=== PATIENT | female | born 1945 | race Caucasian/White ===

== ENCOUNTER → 2018-05-27 10:59 | Outpatient (CLI) | payer MEDICARE, OTHER, SELFPAY ==
[2016-08-03 10:46] VITALS: BMI 25.9
--- OUTSIDE RECORDS SUMMARY | 2018-07-29 22:09 | XMS RPT_ITS ---
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 CARDIOVASCULAR: Negative for chest pain, leg swelling, hypertension, CHF or palpitations GI: No nausea, vomiting, or diarrhea, No heartburn or reflux symptoms and no blood. : No history of dysuria or blood MUSCULOSKELETAL: Negative for joint pain or swelling, back pain or muscle pain SKIN: Negative for lesions, rash, and itching PSYCH: Negative for sleep disturbance, mood disorder and recent psychosocial stressors HEMATOLOGY/LYMPHOLOGY: Negative for prolonged bleeding, bruising easily or swollen nodes ENDOCRINE: Negative for cold or heat intolerance. occasional low blood sugars but not symptomatic lows. NEURO: No history of headaches, syncope, paralysis, seizures or tremors EXAM: BP 122/74 (BP Site: Right Arm, BP Position: Sitting, BP Cuff Size: Regular Adult) Pulse 72 Resp 16 Ht 156.2 cm (5' 1.5ANDquot;) Wt 63 kg (139 lb) BMI 25.84 kg/m2 General Appearance: Well appearing, alert, in no acute distress, well-hydrated, well nourished.. Skin: Skin color, texture, turgor normal, no suspicious rashes or lesions, some areas of eczema. Head: Normocephalic, no masses, lesions, tenderness or abnormalities. Eyes: Anicteric sclera. Pupils are equally round and reactive to light. Extraocular movements are intact. . Ears: External ears normal, canals clear. Nose/Sinuses: Nares normal, septum midline, mucosa normal, no drainage or sinus tenderness. Oropharynx: Lips, mucosa, and tongue normal, teeth and gums normal, oropharynx normal. Neck: Supple, no adenopathy; thyroid symmetric, normal size, no bruits. Lungs: Lungs clear to auscultation. No wheezing, rhonchi, rales. Heart: RRR without murmur, gallop, or rubs. No ectopy. Abdomen: Normal abdominal exam, Abdomen soft, non-tender. Bowel sounds normal. No masses, organomegaly. Extremities: No deformities, edema, skin discoloration. Musculoskeletal: Spine range of motion normal. Muscular strength intact, No joint swelling, deformity, or tenderness. Peripheral Pulses: Normal. Neurologic: Gait normal. Reflexes normal and symmetric. Sensation to light touch and crainal nerves 2-12 intact. Feet: Shoes and socks removed, No deformities, ulcers, calluses, normal distal pulses, sensitive to 10 gm monofilament and vibratory perception normal . Health Maintenance List TETANUS due on 11/23/1956 MAMMOGRAM due on 06/12/2017 HBA1C due on 02/11/2018 URINE ALBUMIN CREATININE RATIO due on 04/13/2018 DIABETIC FOOT EXAM due on 04/23/2018 DILATED RETINAL EXAM due on 05/16/2018 LDL due on 08/12/2018 COLORECTAL CANCER SCREENING,SEE MODIFIER due on 07/19/2021 BONE DENSITY Completed ADULT PREVNAR-13 Completed INFLUENZA Completed HEPATITIS C SCREENING Completed PNEUMOVAX AGE 65 AND OVER WITH 5YR LOOKBACK Completed Data reviewed Component Latest Ref Rng ANDamp; Units 04/13/2017 08/12/2017 Protein, Total 6.3 - 8.0 g/dL 7.0 7.1 Albumin 3.9 - 4.9 g/dL 4.3 4.4 Calcium 8.5 - 10.2 mg/dL 9.2 Bilirubin, Total 0.2 - 1.3 mg/dL 0.7 0.6 Alkaline Phosphatase 32 - 117 U/L 47 48 AST 13 - 35 U/L 27 27 Glucose 74 - 99 mg/dL 107 (H) BUN 7 - 21 mg/dL 13 Creatinine 0.58 - 0.96 mg/dL 0.83 Sodium 136 - 144 mmol/L 140 Potassium 3.7 - 5.1 mmol/L 4.1 Chloride 97 - 105 mmol/L 103 CO2 22 - 30 mmol/L 26 Anion Gap 9 - 18 mmol/L 11 ALT 7 - 38 U/L 42 (H) 37 eGFR- ANDgt;60 eGFR-All Other Races . ANDgt;60 Color Yellow Yellow Clarity Clear Clear Glucose, Urine Negative mg/dL Negative Bilirubin, Urine Negative Negative Ketones, Urine Negative Negative Specific [place], Ur 1.005 - 1.030 1.019 Hemoglobin/Blood,Ur Negative Negative pH, Urine 4.5 - 8.0 5.0 Protein, Urine Negative mg/dL Negative Urobilinogen Normal Normal Nitrites Negative Negative Leukest Negative 2+ (A) Comments SEE COMMENT Urine [place] Comment SEE COMMENT WBC, Urine 0 - 5 /HPF 0-5 RBC, Urine 0 - 3 /HPF 0-3 Epithelial Cells /HPF SEE COMMENT Triglyceride ANDlt;150 mg/dL 242 (H) 227 (H) Cholesterol, Total ANDlt;200 mg/dL 167 175 HDL Cholesterol ANDgt;39 mg/dL 37 (L) 39 (L) VLDL Cholesterol ANDlt;30 mg/dL 48 (H) 45 (H) LDL Cholesterol ANDlt;100 mg/dL 82 91 Fasting Time hrs 12 12 TC:HDL Ratio ANDlt;5.10 4.51 4.49 LDL:HDL Ratio ANDlt;2.54 2.22 2.33 Non HDL Cholesterol ANDlt;130 mg/dL 130 136 (H) Bilirubin, Conjug ANDlt;0.2 mg/dL ANDlt;0.2 Creatinine, Ur Random (UCRR) 20 - 300 mg/dL 115.9 Albumin, Urine Random 0.0 - 23.0 mg/L ANDlt;12.0 Albumin/Creat Ratio 0 - 30 mg/g Not calculated Hemoglobin A1C 4.3 - 5.6 % 6.2 (H) 6.3 (H) Estimated Average Glucose mg/dL 131 134 Magnesium 1.7 - 2.3 mg/dL 2.0 A/P ASSESSMENT/PLAN: 1. Medicare annual wellness visit, subsequent - ICD9: V70.0, ICD10: Z00.00 (primary diagnosis) - Encouraged monthly Breast Self Exam - Follow up for annual exam in one year. 2. Controlled type 2 diabetes mellitus without complication, without long-term current use of insulin (HCC) - ICD9: 250.00, ICD10: E11.9 Controlled. - Continue current medications - BP goal of ANDlt;130/80 - LDL goal of ANDlt;100 3. Mixed hyperlipidemia - ICD9: 272.2, ICD10: E78.2 - good control - Continue current medication. - Encouraged following a low fat, low cholesterol diet. - Discussed the benefits of regular aerobic exercise and weight loss. - Encouraged following a low carbohydrate, healthy oil intake diet. 4. GERD without esophagitis - ICD9: 530.81, ICD10: K21.9 - Continue treatment with Nexium 40 mg QD 5. Primary insomnia - ICD9: 307.42, ICD10: F51.01 - Stable without need for nightly medication. 6. Encounter for screening mammogram for breast cancer - ICD9: V76.12, ICD10: Z12.31 Check } - GIA SCREENING 7. Eczema, unspecified type - ICD9: 692.9, ICD10: L30.9 - Topical steriod tx with Rx for steriod cream/ointment- see orders - discussed skin care of rash - follow up if symptoms persist or worsen. Signed Prescriptions Disp Refills metFORMIN ER (GLUCOPHAGE XR) 500 mg 24 hr tablet 90 tablet 1 Sig: Take 1 tablet by mouth daily with breakfast. DONAL: No triamcinolone acetonide (KENALOG) 0.1 % cream 1 Tube 1 Sig: Apply 1 application to affected area three times daily. On 4 days and then off for 3 and repeat when needed. Apply sparingly. DONAL: No F/u 4 months routine, check FLP, LFT's and A1c prior. Time with patient face to face was 25 min for [facility] and 10 min for medicare wellness. MD Bharti Hull MD 08/27/2017 11:28 AM Signed Please get fasting labs done on or after 12/13/2017 prior to next visit. Referring Provider: BHARTI PETERSON [[id number]] Allergies As of Date: 08/27/2017 Noted Allergy Reaction ADHESIVE TAPE (ROSINS) 07/22/2012 2 - Rash CECLOR (CEFACLOR) 04/19/2005 GREEN DYE 04/20/2005 5 - Intolerance Comments: MAKES HER FACE BREAK OUT LIPITOR (ATORVASTATIN CALCIUM) 04/04/2017 17 - Myalgia VICODIN (HYDROCODONE-ACETAMINOPHE*08/13/2012 11 - Vomiting Date Reviewed: 08/27/2017 Reviewed by: Bharti Peterson - Fully Assessed Reason for Visit: Physical [83] Cmt: 4 months Primary Visit Diagnosis:Medicare annual wellness visit, subsequent [Z00.00] Comment:last done: 08/27/2017 Other Visit Diagnoses:Controlled type 2 diabetes mellitus without complication, without long-term current use of insulin (HCC) [E11.9] Mixed hyperlipidemia [E78.2] GERD without esophagitis [K21.9] Primary insomnia [F51.01] Encounter for screening mammogram for breast cancer [Z12.31] Eczema, unspecified type [L30.9] Order(s):metFORMIN ER (GLUCOPHAGE XR) 500 mg 24 hr tabletTake 1 tablet by mouth daily with breakfast.Disp: 90 tabletRfl: 1 GIA SCREENING [[id number]] Order #: [id number] FUTURE triamcinolone acetonide (KENALOG) 0.1 % creamApply 1 application to affected area three times daily. On 4 days and then off for 3 and repeat when needed. Apply sparingly.Disp: 1 TubeRfl: 1 HGB A1C [ADCXS0J] Order #: [id number] FUTURE LIPID PANEL BASIC [SQLIPB] Order #: [id number] FUTURE HEPATIC FUNCTION PNL [SQHFP] Order #: [id number] FUTURE Prescriptions as of 08/27/2017 Sig: METFORMIN ER 500 MG TABLET,EX* Take 1 tablet by mouth daily * TRIAMCINOLONE ACETONIDE 0.1 %* Apply 1 application to affect* SIMVASTATIN 40 MG TABLET Take 1 tablet by mouth daily * ESOMEPRAZOLE MAGNESIUM 40 MG * Take 1 capsule by mouth DAILY* CALCIUM 600 MG-D3 800 UNIT-MA* Take 1 tablet by mouth once d* FLAXSEED OIL 1,000 MG CAPSULE Take 1,000 mg by mouth 3 time* Problem List As Of Date 08/27/2017 Noted Resolved Goiter [E04.9] INVALID FOR* Priority: B Controlled type 2 diabetes mellitus without com*INVALID FOR* Priority: A Mixed hyperlipidemia [E78.2] INVALID FOR* Priority: A Unspecified sleep apnea [G47.30] INVALID FOR* Priority: B More... Benign neoplasm of colon [D12.6] INVALID FOR* Priority: C Hiatal hernia [K44.9] INVALID FOR* Priority: B GERD without esophagitis [K21.9] INVALID FOR* Priority: A Chronic pansinusitis [J32.4] INVALID FOR* Priority: B More... Eczema [L30.9] INVALID FOR*04/16/2016 Priority: D Fibrocystic breast disease [N60.19] INVALID FOR* Priority: C Chronic low back pain [M54.5, G89.29] INVALID FOR* Priority: M More... Primary insomnia [F51.01] INVALID FOR* Priority: B Diabetic eye exam (HCC) [Z01.00, E11.9] INVALID FOR* Priority: A More... Colon cancer screening [Z12.11] INVALID FOR* More... Thoracic spine pain [M54.6] INVALID FOR* Senile osteopenia [M85.80] INVALID FOR* Priority: M Current use of proton pump inhibitor [Z79.899] INVALID FOR* More... Right shoulder pain [M25.511] INVALID FOR* Irritated nevus [D22.9] INVALID FOR* Priority: D More... Encounter for gynecological examination [Z01.41*INVALID FOR* Priority: E More... Medicare annual wellness visit, subsequent [Z00*INVALID FOR* Priority: E More... Well adult exam [Z00.00] INVALID FOR* Priority: E More... Encounter for screening mammogram for breast ca*INVALID FOR* Eczema [L30.9] INVALID FOR* Priority: D Other instructions from your clinician: Please get fasting labs done on or after 12/13/2017 prior to next visit. Prescriptions ordered this encounter Disp Refills Start End METFORMIN ER 500 MG TABLET,EXTENDED * 90 t* 1 08/27/2017 Route: ORAL Sig: Take 1 tablet by mouth daily with breakfast. TRIAMCINOLONE ACETONIDE 0.1 % TOPICA* 1 Tu* 1 08/27/2017 Route: TOPICAL Sig: Apply 1 application to affected area three times daily. On 4 days and then off for 3 and repeat when needed. Apply sparingly. Medications Discontinued During This Encounter metFORMIN ER (GLUCOPHAGE XR) 500 mg * 90 t* 1 02/22/2017 08/27/2017 Route: ORAL Sig: Take 1 tablet by mouth daily with breakfast. Disc: Reason for discontinue is not on file. triamcinolone acetonide (KENALOG) 0.* 0 04/16/2016 08/27/2017 Class: Med Update Route: TOPICAL Sig: Apply 1 application to affected area three times daily. Apply sparingly to area for rash/itching. Disc: Reason for discontinue is not on file. Cosign accepted by BHARTI PETERSON[[id number]] on 04/16/2016 4:42 PM Disposition: Return in about 4 months (around 12/27/2017) for routine. Follow-up and Disposition History Recorded Encounter Status:Closed by BHARTI PETERSON on 08/27/17 HEPATIC FUNCTN PANEL Collected: 08/12/2017 Status: F Source: [place] 10:[address] [facility] REPOSITORY TYPE CODE TESTS RESULT OUT OF REFERENCE UNITS RANGE LAB ALB 3.9-4.9 g/dL Albumin 4.4 LAB TBIL 0.2-1.3 mg/dL Bilirubin, Total 0.6 LAB CBIL <0.2 mg/dL Bilirubin,Conjuga <0.2 alan LAB ALKP 32-117 U/L Alkaline Phosphatase 48 LAB AST 13-35 U/L AST 27 LAB ALT 7-38 U/L ALT 37 LAB TP 6.3-8.0 g/dL Protein, Total 7.1 Performed By: #### HFP, LIPB, MG1, HBA1C #### [facility] [address] [place] [id number] LIPID PANEL, BASIC Collected: 08/12/2017 Status: F Source: [place] 10:[address] [facility] [place] REPOSITORY TYPE CODE TESTS RESULT OUT OF REFERENCE UNITS RANGE LAB CHOL <200 mg/dL Cholesterol 175 Result Comment: <200 mg/dL, Desirable 200-239 mg/dL, Borderline high >239 mg/dL, High LAB TRIGLY <150 mg/dL Triglyceride High 227 Result Comment: <150 mg/dL, Normal 150-199 mg/dL, Borderline high 200-499 mg/dL, High >499 mg/dL, Very high LAB HDL >39 mg/dL HDL-Cholesterol Low 39 Result Comment: 40-59 mg/dL, Acceptable >59 mg/dL, High: Negative risk factor for coronary heart disease <40 mg/dL, Low: Positive risk factor for coronary heart disease LAB LDL <100 mg/dL LDL-Cholesterol 91 Result Comment: <100 mg/dL, Optimal 100-129 mg/dL, Near optimal/above optimal 130-159 mg/dL, Borderline high 160-189 mg/dL, High >189 mg/dL, Very high Secondary prevention optimal LDL Cholesterol levels are recommended to be < 70 mg/dL LAB NONHDL <130 mg/dL Non HDL High Cholesterol 136 Result Comment: <130 mg/dL, Optimal 130-159 mg/dL, Near optimal/above optimal 160-189 mg/dL, Borderline high 190-219 mg/dL, High >219 mg/dL, Very high Secondary prevention optimal non HDL Cholesterol levels are recommended to be < 100 mg/dL LAB FT hrs Fasting Time 12 LAB VLDL <30 mg/dL High VLDL Cholesterol 45 LAB TCHDL <5.10 TC:HDL Ratio 4.49 LAB LDLHDL <2.54 LDL:HDL Ratio 2.33 Result Comment: Reference: 1. National Cholesterol Education Program ATP III Guideline At-A-Glance Quick Desk Reference: National Heart, Lung, and Blood [place]. National Institutes of Health. 2001: NIH Publication No. 01-3305. 2. An International Atherosclerosis Society position paper: global recommendations for the management of dyslipidemia: executive summary, Atherosclerosis. 2014: 232(2):410-413. Performed By: #### HFP, LIPB, MG1, HBA1C #### [facility] [address] [place], [place] [address] MAGNESIUM Collected: 08/12/2017 Status: F Source: [place] 10:24 AM [facility] REPOSITORY TYPE CODE TESTS RESULT OUT OF REFERENCE UNITS RANGE LAB MG 1.7-2.3 mg/dL Magnesium 2.0 Performed By: #### HFP, LIPB, MG1, HBA1C #### [facility] [address] [place], [place] [address] HEMOGLOBIN A1C Collected: 08/12/2017 Status: F Source: [place] 10:24 AM [facility] REPOSITORY TYPE CODE TESTS RESULT OUT OF REFERENCE UNITS RANGE LAB HGBA1C 4.3-5.6 % High Hemoglobin A1c 6.3 LAB HBA0 mg/dL Est. Average Glucose 134 Result Comment: eAG: (Estimated average glucose) is a calculated value from HgbA1c and is open claims representative of the average blood glucose level in the last 2-3 month period. Performed By: #### HFP, LIPB, MG1, HBA1C #### [facility] [address] [place], [place] [address] ALLERGIES ALLERGIES DATE TYPE / CODE NAME / CODE REACTION SEVERITY SOURCE DRUG ATORVASTATIN Myalgia [facility] 7 INGREDI/[id number]( [facility] SNOMED CT) [place] [facility] DRUG ATORVASTATIN Myalgia [place] [address] INGREDI/466811064( [facility] SNOMED CT) [place] [facility] Drug cefaclor/[id number] Other Unknown [place] 7 Allergy/869908298( 26(RXNORM) [facility] SN[facility] Drug adhesive/[id number] Other Unknown [place] 7 Allergy/235921396( 45(RXNORM) [facility] SNOMED [facility]) [facility] Miscellaneous GREEN DYE Other Unknown [place] 7 Allergy/318351645( [facility] SN[facility] DRUG/[id number](SNO HYDROCODONE-ACETA Vomiting Low [place] [address] [facility] [address]) [facility] Repository DRUG/816008746(SNO HYDROCODONE-ACETA Vomiting [place] [address]) [facility] [place] [facility] Chemical/[id number] ADHESIVE TAPE RASH Low [place] 3 (SNOMED CT) (ROSINS) [facility] [place] [facility] Chemical/312321033 ADHESIVE TAPE RASH [place] 3 (SNOMED CT) (ROSINS) [facility] [place] [facility] DRUG GREEN DYE INTOLERANCE Low [place] 5 INGREDI/896701784( [facility] Main SNOMED CT) [place] [facility] DRUG GREEN DYE INTOLERANCE [place] 5 INGREDI/737203526( Clinic Main SNOMED CT) [place] [facility] DRUG CEFACLOR UNKNOWN [place] 5 INGREDI/114228047( [facility] Main SNOMED [facility]) [place] [facility] DRUG CEFACLOR [place] 5 INGREDI/949149312( [facility] Main SNOMED CT) [place] [facility] ENCOUNTERS ENCOUNTERS ADMIT/DISCHARGE ACCOUNT ADMITTING ENCOUNTER LOCATION SOURCE NUMBER CLASS 05/27/2018 [id number] Ambulatory [facility] ing:LABSPEC Repository 04/16/2018/04/17/20 [id number] Ambulatory [address] Main [place] [facility] 03/28/2018/03/28/20 [id number] Ambulatory [address] Main [place] [facility] 03/28/2018/03/28/20 [id number] Ambulatory [address] Main [place] [facility] 03/28/2018/03/31/20 [id number] Ambulatory [address] [facility] [place] [facility] 03/07/2018/03/10/20 [id number] Ambulatory [address] Main [place] [facility] 01/17/2018/01/21/20 [id number] Ambulatory [place] 18 [facility] Main [place] [facility] 01/02/2018/01/04/20 [id number] Ambulatory [place] 18 [facility] Main [place] [facility] 12/20/2017/12/21/19 [id number] Ambulatory [place] 18 [facility] Main [place] [facility] 09/25/2017/09/26/19 [id number] Ambulatory [place] 18 [facility] Main [place] [facility] 09/25/2017/09/26/19 [id number] Ambulatory [place] 18 [facility] Main [place] [facility] 09/11/2017/09/14/19 [id number] Ambulatory [place] 18 [facility] Main [place] [facility] 09/11/2017 [id number] Ambulatory [facility] Repository 08/27/2017/08/29/19 [id number] Ambulatory [address] Repository 08/12/2017 [id number] Ambulatory [facility] Repository PAYERS PAYERS ENCOUNTER GUARANTOR PAYER SUBSCRIBER SOURCE 05/27/2018 PILLO J Primary PILLO J [place] [id number] Insurance:MEDICARE HOFFDOB: [place], [place] PART A BPolicy Number: [id number] [address]Piu: [id number] Repository [phone] () Date:2018-05-27 05/27/2018 Secondary PILLO J [place] Insurance:HUMANA HOFFDOB: [facility] [address] [id number] [facility] Number: Repository [id number] Date:[id number] [id number]: 05/27/2018 Tertiary NOT GIVENUNK [place] Insurance:SELF PAY [facility] Number: Effective Repository Date:2018-05-27
== END ==
PROVIDERS: Family Provider Family Medicine; PCP Family Medicine; Referring Provider Otolaryngology Otolaryngology/Facial Plastic Surgery; Visit Provider Otolaryngology Otolaryngology/Facial Plastic Surgery
DX: J02.9 Acute pharyngitis, unspecified (principal); J32.9 Chronic sinusitis, unspecified
CPT/HCPCS: 87070; 87077

== ENCOUNTER → 2019-06-15 14:22 | Outpatient (CLI) | payer MEDICARE, OTHER, SELFPAY ==
[2016-08-03 10:46] VITALS: BMI 25.9
[2019-06-19 05:06] LABS: Alternaria tenuis <0.10 kU/L (Class 0); Ash, White <0.10 kU/L (Class 0); Aspergillus fumigatus <0.10 kU/L (Class 0); Bermuda Grass <0.10 kU/L (Class 0); Birch <0.10 kU/L (Class 0); Black Walnut <0.10 kU/L (Class 0); Cat Hair / Dander,Stand <0.10 kU/L (Class 0); Cedar, Mountain <0.10 kU/L (Class 0); Cladosporium herbarum <0.10 kU/L (Class 0); Cockroach, American <0.10 kU/L (Class 0); Cottonwood <0.10 kU/L (Class 0); D farinae Mite <0.10 kU/L (Class 0); D pteronyssinus <0.10 kU/L (Class 0); Dog Epithelia <0.10 kU/L (Class 0); Elm, American White <0.10 kU/L (Class 0); Immunoglobulin E 11 IU/mL (6-495); Maple/Box Elder <0.10 kU/L (Class 0); Mulberry, White <0.10 kU/L (Class 0); Oak, White <0.10 kU/L (Class 0); Pecan <0.10 kU/L (Class 0); Penicillium Notatum <0.10 kU/L (Class 0); Pigweed, Rough <0.10 kU/L (Class 0); Ragweed, Short/Common <0.10 kU/L (Class 0); Russian Thistle <0.10 kU/L (Class 0); Sheep Sorrel <0.10 kU/L (Class 0); Sycamore, American <0.10 kU/L (Class 0); Timothy Grass <0.10 kU/L (Class 0)
[2019-06-19 11:11] LABS: Mouse Urine <0.10 kU/L (Class 0)
== END ==
PROVIDERS: PCP Family Medicine; Referring Provider Otolaryngology; Visit Provider Otolaryngology
DX: T78.40XA Allergy, unspecified, initial encounter (principal)
CPT/HCPCS: 36415; 82785; 86003

== ENCOUNTER 2019-11-06 11:38 | Observation (INO) | payer MEDICARE, OTHER, SELFPAY ==
[2019-11-06] VITALS (12 sets, daily range): BP systolic 107–185; BP diastolic 72–104; PULSE 61–87; RESP 16–22; TEMP 36.8–36.9; O2SAT 96–97; BMI 26.2; BMI 26.0; BMI 26.1
--- NOTE | 2019-11-06 11:45 | EKG12_ITS ---
Test Reason : CP Blood Pressure : / mmHG Vent. Rate : 081 BPM Atrial Rate : 081 BPM P-R Int : 142 ms QRS Dur : 092 ms QT Int : 388 ms P-R-T Axes : 026 -10 016 degrees QTc Int : 450 ms Normal sinus rhythm Normal ECG Confirmed by YADIEL PIERCE ([id number]), commercial production editor ARMIN MELLO ([id number]) on 11/09/2019 2:15:47 PM Referred By: KOKO Confirmed By:YADIEL PIERCE
--- NOTE | 2019-11-06 11:50 | ED.DCSUM_ITS ---
History of Present Illness Chief Complaint: Chest Pain Informant: Patient Onset: Yesterday Narrative: 73-year-old female with past medical history of diabetes and hyperlipidemia presents with concern for chest pain. States it began approximately 12 hours ago. States that she felt a pain that was in the center of her chest as well as her right shoulder and going down her right arm. States it is aching in nature. States that she was able to sleep but this morning it is persisted. States that she did take an aspirin last night. Patient feels that this is related to her blood pressure. Patient does not take antihypertensive medication but did check her blood pressure last night and documented as approximately 145/100. States that she has had pain before in the past with elevation of her blood pressure. Denies any shortness of breath, nausea, vomiting, or diaphoresis. Denies any history of DVT or pulmonary embolism. Denies any recent long trips, surgeries, hospitalizations. Patient is not on anticoagulation. Denies any trauma. Patient is not a former or current smoker. Denies any drugs or alcohol. Past Medical History - Allergies and Home Meds Allergies/Adverse Reactions: Allergies adhesive Allergy (Verified 11/06/19 11:39) Other cefaclor [From Ceclor] Allergy (Verified 11/06/19 11:39) Other GREEN DYE Allergy (Uncoded 11/06/19 11:39) Other Past Medical History: - - HLD and DM Surgical History: - - Partial colectomy, foot surgery, or septoplasty. Lives: Spouse/ Significant Other Smoking Status: Never smoker Alcohol: None Drugs: None - Family History Maternal Family History: Reports: No pertinent history Paternal Family History: Reports: No pertinent history Review of Systems General: Denies: Chills, Fever, Sweats Eyes: Denies: Visual changes - bilaterally, Diplopia ENT: Denies: Rhinorrhea, Sore throat Cardiovascular: Reports: Chest pain. Denies: Palpitations Respiratory: Denies: Dyspnea, Cough, Dyspnea on exertion Gastrointestinal: Denies: Abdominal pain, Nausea, Vomiting, Diarrhea, Melena, Hematochezia Genitourinary: Denies: Dysuria, Hematuria, Frequency Musculoskeletal: Reports: Arthralgias. Denies: Back pain, Extremity Pain Skin: Denies: Rash, Wounds Neurological: Denies: Headache, Weakness, Numbness Physical Exam Vital Signs/Narrative: Vital Signs Temp Pulse Resp BP Pulse Ox 11/06/19 11:40 98.2 F 87 17 166/90 H 96 Inital Vital Signs reviewed: Yes General: Well nourished, Well developed, No Acute Distress Head: Normocephalic, Atraumatic Eyes: Perrl, EOMI ENT: Moist mucous membranes, No rhinorrhea Neck: Supple, Nontender Cardiovascular: Regular rate, Regular rhythm, No murmurs Respiratory: No distress, CTA bilaterally, Chest nontender Abdomen: Soft, Nontender, Nondistended, Normal bowel sounds Back: Nontender, Normal Inspection Extremities: Nontender, No edema Skin: Normal color, No rash Neurological: Alert, Oriented x3, Cranial nerves II-XII grossly intact, Normal Strength, Normal Sensation Psychological: Normal affect, Normal Mood Diagnostic/Tx/Re-eval Clinical Impression(s) from Imaging Studies Chest X-Ray 11/06/19 12:03 IMPRESSION: No acute thoracic pathology. Electronically Signed: Thomas Pacheco, at 12:19 EDT Tel , Service support , Laboratory Data 11/06/19 11/06/19 11:30 11:30 WBC 4.8 RBC 5.04 Hgb 15.1 H Hct 46.0 MCV 91.3 MCH 30.0 MCHC 32.8 RDW Std Deviation 43.1 RDW Coeff of Claudia 13.2 Plt Count 197 MPV 10.0 Immature Gran % (Auto) 0.800 Neut % (Auto) 58.9 Lymph % (Auto) 32.8 [place] % (Auto) 5.9 Eos % (Auto) 0.8 Baso % (Auto) 0.8 Absolute Neuts (auto) 2.8 Absolute Lymphs (auto) 1.56 Nucleated RBC % 0 Sodium 140 Potassium 3.9 Chloride 107 Carbon Dioxide 28.0 Anion Gap 5 BUN 19 H Creatinine 0.85 Estim Creat Clear Calc 43.82 Est GFR (MDRD) Af Amer 84 Est GFR (MDRD) Non-Af 70 BUN/Creatinine Ratio 22.4 H Glucose 144 H Calcium 9.2 Troponin I < 0.015 - Rhythm Strip Rhythm Strip: Sinus Rhythm Rate: 81 Ectopy: None - EKG Initial EKG Interpretation: Sinus Rhythm - This rhythm at 81 bpm. CA interval of 142 ms. QTC of 450 ms. No evidence of acute ischemia. Unchanged from previous EKG in July 2016. - Medical Decision Making Appears well nontoxic. Vital signs within normal limits. EKG nonischemic. Troponin negative. Patient did receive aspirin as well as 2 doses of nitroglycerin which resolved her chest pain. Given the patient's age as well as risk factors and no previous history of hypertension or coronary artery disease she will be admitted for stress testing and further evaluation. Spoke with Dr. Dumont who is agreeable with admission. Patient also agreeable and admitted in stable condition. ED Disposition - Plan for ED Patient: Disposition: [facility] Diagnosis: Chest pain, Elevated blood pressure reading
[2019-11-06] MEDS: Aspirin 81 MG TAB.CHEW 324 MG PO (11:56)
[2019-11-06] MEDS: Nitroglycerin (INPATIENT USE) 0.4 MG TAB.SUBL SUBLINGUAL ×2 (11:57→12:10)
[2019-11-06 12:01] LABS: Absolute Lymphocyte Count 1.56 X10^3/uL (0.83-4.51); Absolute Neutrophil Count 2.8 X10^3/uL (2.0-7.7); Basophil# 0.04 X10^3/uL; Basophil% 0.8 % (0-1); Eosinophil# 0.04 X10^3/uL; Eosinophils% 0.8 % (0-5); Hemoglobin 15.1 g/dL (12.0-15.0); Lymphocyte # 1.56 X10^3/ul (4.0); Lymphocyte % 32.8 % (19-41); Mean Corp Hgb Conc 32.8 g/dL (32-36); Mean Corpuscular Volume 91.3 fL (81-99); Monocyte# 0.28 X10^3/uL; Monocyte% 5.9 % (0-10); NRBC Flagged by Analyzer 0 % (0-5); Neutrophil # 2.79 X10^3/uL (2.7-7.7); Neutrophil % 58.9 % (47-70); Platelet Count 197 K/mm3 (150-450); RBC Distribution Width CV 13.2 % (11.6-14.6); RBC Distribution Width SD 43.1 fl (35.1-43.9); Red Blood Count 5.04 M/mm3 (4.2-5.4); White Blood Count 4.8 K/mm3 (4.4-11.0)
--- NOTE | 2019-11-06 12:03 | RAD_ITS ---
STUDY: X-RAY CHEST REASON FOR EXAM: Female, 73 years old. Chest pain TECHNIQUE: Frontal view of the chest COMPARISON: 10/03/2016 FINDINGS: The lungs are clear. There are no pleural effusions. There is no pneumothorax. The heart is normal in size. The visualized osseous structures are within normal limits. RAD/Chest 1 View (Portable) IMPRESSION: No acute thoracic pathology. Electronically Signed: Thomas Pacheco, at 12:19 EDT Tel , Service support ,
[2019-11-06 12:15] LABS: Anion Gap 5 (5-15); BUN 19 mg/dL (7-18); BUN/Creat Ratio 22.4 RATIO (10-20); Calcium,Total 9.2 mg/dL (8.5-10.1); Chloride 107 mmol/L (98-107); Creatinine, Serum 0.85 mg/dL (0.55-1.02); EST Glomerular Filtration Rate 70 mL/min (>60); Est Glom Filt Rate - Afr Amer 84 mL/min (>60); Estimated Creatinine Clearance 43.82 ml/min; Glucose 144 mg/dL (74-106); Potassium 3.9 mmol/L (3.5-5.1); Sodium Level 140 mmol/L (136-145)
--- NOTE | 2019-11-06 12:57 | NURSING ---
PCU CP, ELEVATED BP JUAN RAMON
--- NOTE | 2019-11-06 13:02 | PCM.HP.STD ---
Problem List (1) Elevated blood pressure reading Status: Acute (2) Chest pain Status: Acute (3) Hiatal hernia Status: Chronic (4) GERD (gastroesophageal reflux disease) Status: Chronic (5) Hyperlipidemia Status: Chronic (6) Type 2 diabetes mellitus Status: Chronic History of Present Illness Date of Admission: 11/06/19 Chief Complaint: Chest pain. The patient is a 73 year old F with past medical history as mentioned above presented to the emergency room because of chest pain. Her symptoms started last night with retrosternal chest pain, dull aching pain, mild pain, 2 out of 10 in severity, extends to both shoulders and her back, no aggravating or relieving factors and no associated symptoms. She denied associated shortness of breath, palpitation, dizziness, lightheadedness, syncope or presyncope. Also, she complained of productive cough with clear sputum that has been going on since March,. She mentioned that she has been following up with immunology as outpatient and she has been getting injections for allergies. She denied fever or chills. Initially in the emergency department, her blood pressure was elevated, other vital signs were stable. She received sublingual nitroglycerin and her blood pressure improved. Her routine blood work was unremarkable. Her EKG revealed normal sinus rhythm, normal [place] interval, normal QRS, normal QTC, no acute segment changes. Troponin was negative. Chest x-ray showed no acute findings. She is being admitted for chest pain for evaluation. Past Medical History Past Medical History (Chronic Problems): Chronic Problems Hiatal hernia (Chronic) GERD (gastroesophageal reflux disease) (Chronic) Hyperlipidemia (Chronic) Type 2 diabetes mellitus (Chronic) Allergies adhesive Allergy (Verified 11/06/19 11:39) Other cefaclor [From Ceclor] Allergy (Verified 11/06/19 11:39) Other GREEN DYE Allergy (Uncoded 11/06/19 11:39) Other Home Medications: Ambulatory Orders Medication Instructions Recorded Esomeprazole Mag Trihydrate 20 mg PO DAILY 02/22/14 [Nexium] Simvastatin [Zocor] 40 mg PO QHS 02/22/14 Melaton/5-Hydroxy/Trypt/B6/Mag 1 each PO QHS 08/03/16 [Somnicin Capsule] Famotidine [Pepcid] 40 mg PO DAILY 11/06/19 Metformin HCl [Metformin HCl ER] 500 mg PO DAILY 11/06/19 Surgical History: - - Partial colectomy for colonic polyp, foot surgery, or septoplasty. Psychiatric History: No pertinent psych hx PATIENT OBSERVATION ASSISTANT History: No pertinent PATIENT OBSERVATION ASSISTANT history Lives: Spouse/ Significant Other Smoking Status: Never smoker Alcohol: None Drugs: None - *Family History Maternal History Items: No pertinent history Paternal History Items: No pertinent history Review of Systems Constitutional: Denies: Anorexia, Chills, Fever, Weakness Eyes: Denies: Blurred vision, Double vision, Drainage, Redness HEENT: Denies: Difficulty Hearing, Ear Pain, Eye Pain, Nasal Congestion, Sore Throat Cardiovascular: Reports: Chest Pain, Chest Pressure. Denies: Edema, Heaviness, Light Headedness, Palpitations, Syncope Respiratory: Reports: Cough, Pleuritic Pain, Sputum production. Denies: Shortness of Breath, Wheezing Gastrointestinal: Denies: Abdominal Pain, Constipation, Diarrhea, Nausea, Vomiting Genitourinary: Denies: Dysuria, Frequency, Hematuria Musculoskeletal: Denies: Arm Pain, Back Pain, Foot Pain Skin: Denies: Dryness, Rash Neurological: Denies: Balance problems, Double vision, Change in Speech, Slurred speech, Confusion, Incoordination, Numbness Psychiatric: Denies: Anxiety, Depression Endocrine: Denies: Change in Body Habitus, Polydipsia, Polyuria VTE Information - Inpt Only VTE Present on Admission: No VTE Mechan Device Prophylaxis: None VTE Pharm Prophylaxis ordered?: Yes Patient Problems: Active and Suspected Problems Elevated blood pressure reading (Acute) Chest pain (Acute) - Physical Exam Vitals/I&O's: Vital Signs Temp Pulse Resp BP Pulse Ox 98.2 F 75 21 H 107/74 96 11/06/19 11:40 11/06/19 12:39 11/06/19 12:39 11/06/19 12:39 11/06/19 12:39 Oxygen Flow Rate (L/min) 2 Oxygen Delivery Method Room Air Weight: 138 lb 14.259 oz Body Mass Index (BMI) 26.2 General: Alert, Oriented x3, Cooperative, No apparent distress HEENT: Atraumatic, PERRLA, EOMI, Normocephalic Oral: Moist Mucosa, No Gingival or Mucosal Lesions/ Ulcerations Neck: Supple, No JVD, Negative Carotid Bruits, Trachea Midline, Thyroid Normal Size and Texture Lungs: Clear to auscultation, Normal air movement, No rhonchi, No wheeze, No rales Cardiovascular: Regular rate, Regular Rhythm, Normal S1, Normal S2, No murmurs, PMI Normal Abdomen: Bowel Sounds Present, Soft, Non Tender, Non-Distended, No Hepato-splenomegaly Extremities: No clubbing, No cyanosis, No edema Skin: No rashes, No breakdown Lymphatic: No Cervical, Supraclavicular, or Inguinal Adenopathy Neurological: Cranial nerves II-XII grossly intact, Motor Exam 5/5 strength throughout Psych/Mental Status: Normal Affect, Appropriate, Alert and oriented to time, place, person, mood and affect Laboratory Results 11/06/19 11:30: WBC 4.8, RBC 5.04, Hgb 15.1 H, Hct 46.0, MCV 91.3, MCH 30.0, MCHC 32.8, RDW Std Deviation 43.1, RDW Coeff of Claudia 13.2, Plt Count 197, MPV 10.0, Immature Gran % (Auto) 0.800, Neut % (Auto) 58.9, Lymph % (Auto) 32.8, [place] % (Auto) 5.9, Eos % (Auto) 0.8, Baso % (Auto) 0.8, Absolute Neuts (auto) 2.8, Absolute Lymphs (auto) 1.56, Nucleated RBC % 0 11/06/19 11:30: Sodium 140, Potassium 3.9, Chloride 107, Carbon Dioxide 28.0, Anion Gap 5, BUN 19 H, Creatinine 0.85, Estim Creat Clear Calc 43.82, Est GFR (MDRD) Af Amer 84, Est GFR (MDRD) Non-Af 70, BUN/Creatinine Ratio 22.4 H, Glucose 144 H, Calcium 9.2, Troponin I < 0.015 Clinical Impression(s) from Imaging Studies Chest X-Ray 11/06/19 12:03 IMPRESSION: No acute thoracic pathology. Electronically Signed: Thomas Pacheco, at 12:19 EDT Tel , Service support , Assessment/Plan All Active Problems Elevated blood pressure reading (Acute) Chest pain (Acute) This is a 73 years old female patient presented to the emergency room because of chest pain and she is being admitted for evaluation. #1 chest pain: Seemed to be atypical. Risk factors are age, history of diabetes and hyperlipidemia. No family history of premature CAD. EKG was unremarkable. First troponin is negative. Chest x-ray showed no acute findings. Chest pain improved after blood pressure went down. Plan: Admit to PCU for observation, cardiac monitoring, serial cardiac enzymes, repeat EKG tomorrow morning, gentle IV fluids for hydration, Tylenol PRN, Zofran PRN, stress echocardiogram tomorrow morning if cardiac enzymes are negative. #2 elevated blood pressure: Without history of hypertension. Upon arrival to ED, systolic blood pressure was in the 180s, received with nitroglycerin sublingual and blood pressure improved. At this time, blood pressure stable. Plan: Start lisinopril, IV hydralazine PRN. #3 type 2 diabetes mellitus: Blood sugar stable, plan for ADA diet, Accu-Cheks, insulin scale, hold metformin for now. #4 GERD/hiatal hernia: Continue Nexium and Pepcid. #5 hyperlipidemia: Continue statins. #6 seasonal allergies/chronic cough with sputum production: Patient has been following up with immunology, getting injections for allergies as outpatient. Chest x-ray showed no acute findings. She has been febrile, no leukocytosis. #7 DVT prophylaxis: Subcu Lovenox. This note was generated with Headplay dictation software. It may contain incorrect words, spelling, and punctuation that were not noted in checking the note before signing. OBSV E&M: [id number] Initial observation care L3
--- NOTE | 2019-11-06 14:18 | EKG12_ITS ---
Test Reason : MORNING EKG Blood Pressure : / mmHG Vent. Rate : 061 BPM Atrial Rate : 061 BPM P-R Int : 174 ms QRS Dur : 084 ms QT Int : 450 ms P-R-T Axes : 026 -13 003 degrees QTc Int : 453 ms Normal sinus rhythm Normal ECG Confirmed by HELADIO MARCIAL, ANGELI ([id number]), associate entertainment editor PEREZ DENISE ([id number]) on 11/11/2019 10:39:51 AM Referred By: JUAN RAMON Confirmed By:ANGELI LEIJA MD
[2019-11-06] MEDS: 0.9% Saline Lock 10 ML Syringe IV (14:53)
[2019-11-06] MEDS: 0.9% Normal Saline 1,000 ML 75 ML IV (14:54)
[2019-11-06 16:10] LABS: Bedside Glucose 104 mg/dL (70-110)
[2019-11-06] MEDS: Atorvastatin Calcium 20 MG Tablet PO (21:33)
[2019-11-07] VITALS (7 sets, daily range): BP systolic 101–134; BP diastolic 68–72; PULSE 61–72; RESP 14–16; TEMP 36.6–36.8; O2SAT 93–97
[2019-11-07] MEDS: Lisinopril 10 MG Tablet PO (05:34)
--- NOTE | 2019-11-07 05:55 | EKG12_ITS ---
Test Reason : Blood Pressure : / mmHG Vent. Rate : 061 BPM Atrial Rate : 061 BPM P-R Int : 156 ms QRS Dur : 086 ms QT Int : 444 ms P-R-T Axes : 022 -10 004 degrees QTc Int : 446 ms Normal sinus rhythm Normal ECG Confirmed by HELADIO MARCIAL, ANGELI ([id number]), social media editor PEREZ DENISE ([id number]) on 11/11/2019 10:40:30 AM Referred By: JUAN RAMON Confirmed By:ANGELI LEIJA MD
--- NOTE | 2019-11-07 05:55 | STE_ITS ---
Reason For Study: Chest Pain Stress Results Protocol: Casey Protocol Maximum Predicted HR: 146 bpm Target HR: 124 bpm % Maximum Predicted HR: 81 % DurationHeart Rate Stage (mm:ss) (bpm) BP Comment Baseline 66 124/78Mild Chest Pain Casey Protocol Stage I 3:00 97 128/72Mild Chest Pain Casey Protocol Stage II 3:00 100 136/72Mild Chest Pain; Mild Dyspnea Casey Protocol Stage III 3:00 118 172/74Mild Chest Pain; Mod Dyspnea Recovery 83 120/70Mild Chest Pain; No Dyspnea Stress Duration: 9:00 mm:ss Maximum Stress HR: 118 bpm METS: 10 Baseline Echocardiogram Findings The estimated ejection fraction is 65 %. Stress Echo Wall motion Data Resting WM Intermediate WM Stress WM Resting Wall Motion Wall Motion Stress No regional wall motion No regional wall motion abnormalities noted. abnormalities noted. EKG Data The baseline ECG displays normal sinus rhythm. The patient exercised according to the regular Casey protocol for a total duration of 9:00. The maximum heart rate attained was 130 beats per minute. This was 89% of maximum predicted heart rate. The patient exercised into stage 4 of the Casey protocol. During stress, there were no ST or T wave changes noted to suggest ischemia. No clinical angina was noted. Interpretation Summary The estimated ejection fraction is 65 %. Normal, adequate, treadmill echocardiogram. Negative for ischemia by EKG and echocardiographic criteria. No anginal symptoms noted. No rare PVCs noted. Appropriate blood pressure response to exercise. Average exercise capacity for age. Test terminated due to dyspnea. Final LVEF is 75%. Patient tolerate procedure well. No complications. Ordering Physician: Derrek Crawford Referring Physician: Florentino Landrum Performed By: Chelly Guerrero RDCS
[2019-11-07 07:11] LABS: Bedside Glucose 123 mg/dL (70-110)
[2019-11-07] MEDS: Pantoprazole Sodium 20 MG Tablet PO (10:08)
[2019-11-07] MEDS: Famotidine 20 MG Tablet 40 MG PO (10:08)
--- NOTE | 2019-11-07 11:30 | DCINST_ITS ---
- Discharge Diagnoses Current Active Problems: Current Active and Chronic Problems Elevated blood pressure reading (Acute) Chest pain (Acute) Hiatal hernia (Chronic) GERD (gastroesophageal reflux disease) (Chronic) Hyperlipidemia (Chronic) Type 2 diabetes mellitus (Chronic) You will use the following diet at home:: Calorie/Carbohydrate Controlled (specify 1200, 1400, etc) - 1800 katia., Cardiac Your food should be the consistency of: Regular Discharge Activity: Return to Normal Activity Weight Bearing Status: Weight bearing as tolerated Call your doctor if you observe: Fever of 101 or Higher, Shortness of breath, Dizziness, Fainting spells, Chest pain, Increased palpitations (irregular heartbeat), Uncontrolled pain Instructions: Lisinopril Oral tablet, Taking KEVIN Inhibitors, Taking Your Blood Pressure Allergies/Adverse Reactions: Allergies adhesive Allergy (Verified 11/06/19 11:39) Other cefaclor [From Ceclor] Allergy (Verified 11/06/19 11:39) Other GREEN DYE Allergy (Uncoded 11/06/19 11:39) Other Medications to take at Discharge Esomeprazole Mag Trihydrate [Nexium] 20 mg PO DAILY 02/22/14 Simvastatin [Zocor] 40 mg PO QHS 02/22/14 Melaton/5-Hydroxy/Trypt/B6/Mag [Somnicin Capsule] 1 each PO QHS 08/03/16 Famotidine [Pepcid] 40 mg PO DAILY 11/06/19 Metformin HCl [Metformin HCl ER] 500 mg PO DAILY 11/06/19 Lisinopril [Zestril] 10 mg PO DAILY #30 tab 11/07/19 The following prescriptions were given: Lisinopril [Zestril] 10 mg PO DAILY #30 tab Transmission Status: Pending to [facility]/pharmacy #[id number] Primary Care Physician: Sameer Townsend MD [Primary Care Provider] - Please follow up with your Primary Care Physician in: 1 week. Test Results: Test results from this visit will be discussed in further detail at your follow- up appointment, if applicable.
--- NOTE | 2019-11-07 11:31 | DS.PCM_ITS ---
Discharge Date and Diagnosis - Problem List Patient Problems: Active and Suspected Problems Elevated blood pressure reading (Acute) Chest pain (Acute) Date of Admission: 11/06/19 Date of Discharge: 11/07/19 - Primary Discharge Diagnosis Acute Problems: Active Problems #1 atypical chest pain, ACS ruled out, attributed to GERD versus elevated blood pressure. #2 elevated blood pressure, started on lisinopril. - Secondary Discharge Diagnosis Chronic Problems: Chronic Problems Hiatal hernia (Chronic) GERD (gastroesophageal reflux disease) (Chronic) Hyperlipidemia (Chronic) Type 2 diabetes mellitus (Chronic) Hospital Course and Treatment Imaging Results: 11/07/19 05:55 Stress Test Echo w/o Contrast [ECHO] AM (NON MEDS) Clinical Impression(s) from Imaging Studies Chest X-Ray 11/06/19 12:03 IMPRESSION: No acute thoracic pathology. Electronically Signed: Thomas Montanezvincent, at 12:19 EDT Tel , Service support , Procedures: EKG, - - Stress echocardiogram. Summary of Care Provided: Patient seen and examined on the day of discharge and appeared to be stable be discharged home. Chest pain has improved. Denied shortness of breath, still having chronic cough. Denied fever chills. Her vital signs are stable. The patient is a 73 year old F presented to the emergency room because of atypical chest pain and she was admitted for evaluation. In the emergency department, her blood pressure was high and was up to 185/104. She was given sublingual nitroglycerin and her blood pressure improved. Initial EKG revealed normal sinus rhythm without evidence of acute segment changes. Troponin was negative x3. Her routine blood work was unremarkable. Patient was started on lisinopril 10 mg p.o. daily, she had no side effects or acute allergic reaction to lisinopril. She underwent stress echocardiogram that was normal, adequate treadmill echocardiogram, negative for ischemia by EKG and echocardiographic criteria, ejection fraction of 75%. Patient complained of chronic cough which has been going on for several months. Chest x-ray showed no acute findings. She had no fever, no leukocytosis. Pneumonia ruled out. Her cough attributed to seasonal allergies versus GERD. Patient is already on PPI and Pepcid. ACS ruled out. Patient discharged home in a stable medical condition, started on lisinopril for hypertension, continued on her previous home medications without any changes, recommended follow-up with PCP in 1 week. Patient Problems: Active and Suspected Problems Elevated blood pressure reading (Acute) Chest pain (Acute) - Physical Exam Vitals/I&O's: Vital Signs Temp Pulse Resp BP Pulse Ox 97.9 F 69 14 101/68 93 11/07/19 07:46 11/07/19 07:46 11/07/19 07:46 11/07/19 07:46 11/07/19 07:46 Oxygen Flow Rate (L/min) 2 Oxygen Delivery Method Room Air Weight: 138 lb 0.15 oz Body Mass Index (BMI) 26.0 Intake and Output for Last 24 Hours 11/05/19 11/06/19 11/07/19 23:59 23:59 23:59 Intake Total 1250 / 1250 Balance 1250 / 1250 General: Alert, Oriented x3, Cooperative, No apparent distress HEENT: Atraumatic, PERRLA, EOMI, Normocephalic Oral: Moist Mucosa, No Gingival or Mucosal Lesions/ Ulcerations Neck: Supple, No JVD, Negative Carotid Bruits, Trachea Midline, Thyroid Normal Size and Texture Lungs: Clear to auscultation, Normal air movement, No rhonchi, No wheeze, No rales Cardiovascular: Regular rate, Regular Rhythm, Normal S1, Normal S2, PMI Normal Abdomen: Bowel Sounds Present, Soft, Non Tender, Non-Distended, No Hepato-splenomegaly Extremities: No clubbing, No cyanosis, No edema Skin: No rashes, No breakdown Lymphatic: No Cervical, Supraclavicular, or Inguinal Adenopathy Neurological: Cranial nerves II-XII grossly intact, Neuro grossly intact Psych/Mental Status: Normal Affect, Appropriate Laboratory Results 11/06/19 11:30: WBC 4.8, RBC 5.04, Hgb 15.1 H, Hct 46.0, MCV 91.3, MCH 30.0, MCHC 32.8, RDW Std Deviation 43.1, RDW Coeff of Claudia 13.2, Plt Count 197, MPV 10.0, Immature Gran % (Auto) 0.800, Neut % (Auto) 58.9, Lymph % (Auto) 32.8, Gates % (Auto) 5.9, Eos % (Auto) 0.8, Baso % (Auto) 0.8, Absolute Neuts (auto) 2.8, Absolute Lymphs (auto) 1.56, Nucleated RBC % 0 11/06/19 11:30: Sodium 140, Potassium 3.9, Chloride 107, Carbon Dioxide 28.0, Anion Gap 5, BUN 19 H, Creatinine 0.85, Estim Creat Clear Calc 43.82, Est GFR (MDRD) Af Amer 84, Est GFR (MDRD) Non-Af 70, BUN/Creatinine Ratio 22.4 H, Glucose 144 H, Calcium 9.2, Troponin I < 0.015 11/06/19 14:56: Troponin I < 0.015 11/06/19 16:00: POC Glucose 104 11/06/19 16:53: Troponin I < 0.015 11/07/19 07:01: POC Glucose 123 H Current Medications Acetaminophen (Tylenol) 650 mg PO Q6H PRN PRN PRN Reason: Pain Score 1-10/Temp > 100.7 F Atorvastatin Calcium (Lipitor) 20 mg PO QHS [facility] Last Admin: 11/06/19 21:33 Dose: 20 mg Documented by: Dextrose (D50w Syringe) 0 gm IV X1 PRN; Protocol PRN Reason: Hypoglycemia Enoxaparin Sodium (Lovenox) 40 mg SC DAILY [facility] Famotidine (Pepcid) 40 mg PO DAILY [facility] Last Admin: 11/07/19 10:08 Dose: 40 mg Documented by: Glucagon () 1 mg IM .X1 PRN PRN Reason: Hypoglycemia Hydralazine HCl (Apresoline Iv) 5 mg IV Q6H PRN PRN PRN Reason: for SBP>160 Sodium Chloride () 250 mls @ 15 mls/hr IV .[id number] PRN PRN Reason: Saline Flush Sodium Chloride () 250 mls @ 15 mls/hr IV .[id number] PRN PRN Reason: Additional IVPB Infusion Insulin Human Lispro (Humalog Kwikpen (Bkc)) 0 unit SC ACHS [facility]; Protocol Last Admin: 11/07/19 07:02 Dose: Not Given Documented by: Lisinopril (Zestril) 10 mg PO DAILY [facility] Last Admin: 11/07/19 05:34 Dose: 10 mg Documented by: Ondansetron HCl (Zofran) 4 mg IV Q8H PRN PRN PRN Reason: NAUSEA/VOMITING Pantoprazole Sodium (Protonix) 20 mg PO DAILY [facility] Last Admin: 11/07/19 10:08 Dose: 20 mg Documented by: Sodium Chloride () 10 - 40 ml IV UD PRN PRN Reason: SALINE FLUSH Last Admin: 11/06/19 14:53 Dose: 10 ml Documented by: Zolpidem Tartrate (Ambien (Generic)) 5 mg PO QHS PRN PRN PRN Reason: INSOMNIA Discharge Activity: Return to Normal Activity Weight Bearing Status: Weight bearing as tolerated Call your doctor if you observe: Fever of 101 or Higher, Shortness of breath, Dizziness, Fainting spells, Chest pain, Increased palpitations (irregular heartbeat), Uncontrolled pain Home Medications: Medications to take at Discharge Esomeprazole Mag Trihydrate [Nexium] 20 mg PO DAILY 02/22/14 Simvastatin [Zocor] 40 mg PO QHS 02/22/14 Melaton/5-Hydroxy/Trypt/B6/Mag [Somnicin Capsule] 1 each PO QHS 08/03/16 Famotidine [Pepcid] 40 mg PO DAILY 11/06/19 Metformin HCl [Metformin HCl ER] 500 mg PO DAILY 11/06/19 Lisinopril [Zestril] 10 mg PO DAILY #30 tab 11/07/19 Following Prescrptions Were Given to Patient: Lisinopril [Zestril] 10 mg PO DAILY #30 tab Transmission Status: Pending to [facility]/pharmacy #[id number] Primary Care Physician: Sameer Townsend MD [Primary Care Provider] - Please follow up with your Primary Care Physician in: 1 week. Patient Instructions: Lisinopril Oral tablet, Taking KEVIN Inhibitors, Taking Your Blood Pressure Disposition: Home Minutes spent on discharge:: 27 Patient Condition:: Stable Medical Necessity - Tobacco Use Smoking Status: Never smoker Meaningful Use Info Meaningful Use Diagnoses (Choose all that apply): None applicable OBSV E&M: 62003 Observation care discharge
== END 2019-11-07 11:31 | disposition home or self-care (01) ==
LOC: ED 12:43 → PCU 13:32
PROVIDERS: Admitting Provider Hospitalist; Emergency Provider Emergency Medicine; PCP Family Medicine; Visit Provider Hospitalist
DX: R07.89 Other chest pain (principal); R03.0 Elevated blood-pressure reading, without diagnosis of hypertension; E78.5 Hyperlipidemia, unspecified; E11.9 Type 2 diabetes mellitus without complications; K21.9 Gastro-esophageal reflux disease without esophagitis; J30.2 Other seasonal allergic rhinitis; K44.9 Diaphragmatic hernia without obstruction or gangrene; Z79.899 Other long term (current) drug therapy; Z79.84 Long term (current) use of oral hypoglycemic drugs
CPT/HCPCS: 36415; 71045; 80048; 82962; 84484; 85025; 93005; 93017; 93350; 96360; 96361; 99218; 99285; J7030; A4216; G0378

== ENCOUNTER → 2020-02-29 09:43 | Outpatient (CLI) | payer MEDICARE, OTHER, SELFPAY ==
[2019-11-06 14:27] VITALS: BMI 26.0
--- NOTE | 2020-02-29 09:50 | RAD_ITS ---
STUDY: X-RAY - ESOPHAGUS (BARIUM SWALLOW) WITH FLUOROSCOPY REASON FOR EXAM: Female, 74 years old. Reflux TECHNIQUE: 16 view(s) of the esophagus were obtained following swallowing of barium. FLUOROSCOPY TIME (if supplied): (0:24) minutes/seconds COMPARISON: None. FINDINGS: There is no demonstrated esophageal foreign body. There is no demonstrated stricture or mucosal abnormality. Normal gastroesophageal junction, without a demonstrated hiatal hernia. The patient ingested a 12 mm tablet of barium without any difficulty. Normal visualized aortic arch and descending thoracic aorta. Normal visualized pulmonary parenchyma. Normal visualized osseous structures of the thorax. RAD/Esophagus Dual Contrast IMPRESSION: Normal plain film x-ray examination (barium swallow) of the esophagus. Electronically Signed: Michael Billingsley, at 12:58 EDT , Service support ,
== END ==
PROVIDERS: PCP Family Medicine; Referring Provider Otolaryngology; Visit Provider Otolaryngology
DX: R13.10 Dysphagia, unspecified (principal)
CPT/HCPCS: 74221

== ENCOUNTER 2020-05-27 05:47 | Emergency (ER) | payer MEDICARE, OTHER, SELFPAY ==
[2019-11-06 14:27] VITALS: BMI 26.0
[2020-05-27 05:48] VITALS: BP 166/82; PULSE 77; RESP 10; TEMP 35.8; O2SAT 97; BMI 26.0
[2020-05-27 06:04] VITALS: BP 166/82; PULSE 61; RESP 12; TEMP 35.8; O2SAT 96
--- NOTE | 2020-05-27 06:04 | EKG12_ITS ---
Test Reason : CP, HYPERTENSION Blood Pressure : / mmHG Vent. Rate : 077 BPM Atrial Rate : 077 BPM P-R Int : 148 ms QRS Dur : 088 ms QT Int : 424 ms P-R-T Axes : 011 -09 -01 degrees QTc Int : 479 ms Normal sinus rhythm Normal ECG Confirmed by SOFIA MARCIAL, BRISA ([id number]), editor in chief PEREZ DENISE ([id number]) on 05/31/2020 10:48:46 AM Referred By: OLGA Confirmed By:BRISA BLACK MD
--- NOTE | 2020-05-27 06:04 | RAD_ITS ---
STUDY: X-RAY CHEST REASON FOR EXAM: Female, 74 years old. cp that started around 2 am to the center of the chest TECHNIQUE: Single AP portable view of the chest. COMPARISON: 11/06/2019 FINDINGS: The lungs are clear and expanded. There is no demonstrated pleural abnormality. Normal size heart. Normal mediastinum and shu. Normal visualized pulmonary arteries. Normal visualized aortic arch and descending thoracic aorta. Normal visualized thoracic spine. Normal visualized ribs, clavicles, and shoulders. There is no demonstrated abnormality of the visualized soft tissue structures of the upper abdomen. RAD/Chest 1 View (Portable) IMPRESSION: Normal x-ray examination of the chest. Electronically Signed: Ivan Hernandez DO at 6:38 EST Tel , Service support ,
--- NOTE | 2020-05-27 06:05 | ED.VIS.GEN ---
History of Present Illness Informant: Patient Narrative: Patient stated around 2 AM she started having nausea and epigastric abdominal discomfort. She stated it radiated around her abdomen and her chest and her arms and her back. She has had this in the past. She had a negative cardiac work-up in November of last year. Currently she stated she only has pain in her back. She was working on some photos and bending over. She stated that she frequently gets pain in her back from doing this. She was concerned that her blood pressure was up before bedtime. She does have a history of hypertension. She recently started donepezil unsure if that is the cause as well. Denies any history of heart attacks in the past. Current severity is mild. She denies any chest pain currently. No pulmonary embolism risk factors. No home treatment. <Fortino Dumont - Last Filed: 05/27/20 06:42> <Evan Chavez - Last Filed: 05/27/20 09:35> Chief Complaint: Chest Pain - Past Medical History (1) Chest pain Status: Acute (2) Elevated blood pressure reading Status: Acute (3) GERD (gastroesophageal reflux disease) Status: Chronic (4) Hiatal hernia Status: Chronic (5) Hyperlipidemia Status: Chronic (6) Type 2 diabetes mellitus Status: Chronic <Fortino Dumont - Last Filed: 05/27/20 06:42> Past Medical History Prior records reviewed: Yes Past Medical History: - - See problem list Surgical History: - - Partial colectomy for colonic polyp, foot surgery, or septoplasty. Lives: With Family Smoking Status: Never smoker Alcohol: None Drugs: None - Family History Maternal Family History: Reports: No pertinent history Paternal Family History: Reports: No pertinent history <Fortino Dumont - Last Filed: 05/27/20 06:42> <Evan Chavez - Last Filed: 05/27/20 09:35> - Allergies and Home Meds Allergies/Adverse Reactions: Allergies adhesive Allergy (Verified 11/06/19 11:39) Other cefaclor [From Ceclor] Allergy (Verified 11/06/19 11:39) Other GREEN DYE Allergy (Uncoded 11/06/19 11:39) Other Primary Care Physician: Sameer Townsend MD [Primary Care Provider] - Review of Systems General: Denies: Chills, Fever, Sweats Eyes: Denies: Visual changes - bilaterally, Diplopia ENT: Denies: Rhinorrhea, Sore throat Cardiovascular: Reports: Chest pain. Denies: Palpitations Respiratory: Denies: Dyspnea, Cough, Dyspnea on exertion Gastrointestinal: Reports: Abdominal pain, Nausea, Vomiting. Denies: Diarrhea, Melena, Hematochezia Genitourinary: Denies: Dysuria, Hematuria, Frequency Musculoskeletal: Reports: Back pain. Denies: Extremity Pain Skin: Denies: Rash, Wounds Neurological: Denies: Headache, Weakness, Numbness <Fortino Dumont - Last Filed: 05/27/20 06:42> Physical Exam Vital Signs/Narrative: Vital Signs Temp Pulse Resp BP Pulse Ox 05/27/20 05:48 96.4 F L 77 10 L 166/82 H 97 General: Well nourished, Well developed, No Acute Distress Head: Normocephalic, Atraumatic Eyes: Perrl, EOMI ENT: Moist mucous membranes, No rhinorrhea Neck: Supple, Nontender Cardiovascular: Regular rate, Regular rhythm, No murmurs Respiratory: No distress, CTA bilaterally, Chest nontender Abdomen: Soft, Nontender, Nondistended, Normal bowel sounds Back: Nontender, Normal Inspection Extremities: Nontender, No edema Skin: Normal color, No rash Neurological: Alert, Oriented x3, Cranial nerves II-XII grossly intact, Normal Strength, Normal Sensation Psychological: Normal affect, Normal Mood <Fortino Dumont - Last Filed: 05/27/20 06:42> Vital Signs/Narrative: Vital Signs Temp Pulse Resp BP Pulse Ox 05/27/20 09:26 68 16 141/71 H 98 05/27/20 08:18 61 14 127/71 H 95 05/27/20 07:08 57 L 12 136/65 H 93 05/27/20 06:04 96.4 F L 61 12 166/82 H 96 05/27/20 05:48 96.4 F L 77 10 L 166/82 H 97 <Evan Chavez - Last Filed: 05/27/20 09:35> Diagnostic/Tx/Re-eval - Medical Decision Making KG obtained upon arrival shows sinus rhythm at a rate of 77 with no acute ischemia or arrhythmia. T wave inversion inferior lead III. This is unchanged from prior EKG in November 2019. Patient given Zofran for nausea. She did not want thing for pain. Lab work and chest x-ray obtained. Lab work shows a normal CBC except for mildly elevated hemoglobin. Troponin negative. Liver function test and lipase negative. Electrolytes unremarkable. My interpretation of the chest x-ray shows nothing acute. Chronic changes related to age noted. Mediastinum normal. On reevaluation patient's blood pressures down to 145/77. She is resting comfortably. I do not feel she needs to be admitted. Have a low suspicion for gallbladder related discomfort or acute coronary syndrome PE or dissection or other emergent cause. Blood pressure has come down just with resting. I will recheck a troponin in 2 hours which will be a 6-hour marker. I suspect this is can continue to be negative. If negative she will follow-up as an outpatient. This will be signed out to the a.m. oncoming physician for reevaluation <Fortino Dumont - Last Filed: 05/27/20 06:42> - Medical Decision Making Care of the patient was turned over to me with delta troponin pending. This was obtained and was normal. Patient was instructed to follow-up with her primary care physician for further evaluation. Patient understood and was agreeable with the plan. All questions were answered. <Evna Chavez - Last Filed: 05/27/20 09:35> ED Disposition <Fortino Dumont - Last Filed: 05/27/20 06:42> <Evan Chavez - Last Filed: 05/27/20 09:35> - Plan for ED Patient: Diagnosis: Upper abdominal pain, Nausea, Chronic back pain, Chest pain Instructions: ED Chest Pain, Uncertain Cause, ED Epigastric Pain (Uncertain Cause) Referrals: Sameer Townsend MD [Primary Care Provider] -
[2020-05-27 06:13] LABS: Absolute Lymphocyte Count 1.44 X10^3/uL (0.83-4.51); Absolute Neutrophil Count 4.8 X10^3/uL (2.0-7.7); Basophil# 0.05 X10^3/uL; Basophil% 0.8 % (0-1); Eosinophil# 0.05 X10^3/uL; Eosinophils% 0.8 % (0-5); Hematocrit 46.2 % (37-47); Hemoglobin 15.4 g/dL (12.0-15.0); Lymphocyte # 1.44 X10^3/ul (4.0); Lymphocyte % 21.9 % (19-41); Mean Corp Hgb Conc 33.3 g/dL (32-36); Mean Corpuscular Hgb 29.7 pg (27.0-32.0); Mean Corpuscular Volume 89.2 fL (81-99); Mean Platelet Vol. 10.1 fl (6.2-12.0); Monocyte# 0.26 X10^3/uL; Monocyte% 3.9 % (0-10); NRBC Flagged by Analyzer 0 % (0-5); Neutrophil # 4.76 X10^3/uL (2.7-7.7); Neutrophil % 72.1 % (47-70); Platelet Count 199 K/mm3 (150-450); RBC Distribution Width CV 12.5 % (11.6-14.6); RBC Distribution Width SD 40.7 fl (35.1-43.9); Red Blood Count 5.18 M/mm3 (4.2-5.4); White Blood Count 6.6 K/mm3 (4.4-11.0)
[2020-05-27] MEDS: Ondansetron 4 MG/2 ML Vial IV (06:17)
[2020-05-27 06:28] LABS: AST(SGOT) 25 U/L (15-37); Alanine Aminotransfer ALT/SGPT 54 U/L (13-56); Albumin, Serum 4.2 g/dL (3.2-5.0); Alkaline Phosphatase 55 U/L (45-117); Anion Gap 5 (5-15); BUN 16 mg/dL (7-18); BUN/Creat Ratio 17.2 RATIO (10-20); Bilirubin, Direct 0.17 mg/dL (0.00-0.30); Calcium,Total 9.2 mg/dL (8.5-10.1); Chloride 105 mmol/L (98-107); Creatinine, Serum 0.93 mg/dL (0.55-1.02); EST Glomerular Filtration Rate 62 mL/min (>60); Est Glom Filt Rate - Afr Amer 76 mL/min (>60); Estimated Creatinine Clearance 41.34 ml/min; Globulin 3.6 g/dL (2.2-4.2); Glucose 174 mg/dL (74-106); Lipase 296 U/L (73-393); Potassium 3.6 mmol/L (3.5-5.1); Protein, Total 7.8 g/dL (6.4-8.2); Sodium Level 137 mmol/L (136-145)
[2020-05-27] MEDS: 0.9% Normal Saline 1,000 ML 150 ML IV (06:31)
[2020-05-27 07:08] VITALS: BP 136/65; PULSE 57; RESP 12; O2SAT 93
[2020-05-27 08:18] VITALS: BP 127/71; PULSE 61; RESP 14; O2SAT 95
[2020-05-27 09:26] VITALS: BP 141/71; PULSE 68; RESP 16; O2SAT 98
[2020-05-27 09:35] VITALS: BP 141/79; PULSE 68; RESP 16; O2SAT 98
== END 2020-05-27 09:36 | disposition home or self-care (01) ==
PROVIDERS: Emergency Provider Emergency Medicine; PCP Family Medicine
DX: R10.10 Upper abdominal pain, unspecified (principal); R11.0 Nausea; G89.29 Other chronic pain; M54.9 Dorsalgia, unspecified; R07.9 Chest pain, unspecified; E78.5 Hyperlipidemia, unspecified; K21.9 Gastro-esophageal reflux disease without esophagitis; E11.9 Type 2 diabetes mellitus without complications; Z87.19 Personal history of other diseases of the digestive system
CPT/HCPCS: 71045; 80048; 80076; 83690; 84484; 85025; 93005; 96374; 99284; J7030; A4216; J2405

== ENCOUNTER 2020-10-19 06:59 | Day surgery (SDC) | payer MEDICARE, OTHER, SELFPAY ==
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
[2020-10-19] MEDS: Lactated Ringers 1,000 ML 125 ML IV (07:00)
[2020-10-19 07:30] VITALS: BP 149/82; PULSE 74; RESP 16; TEMP 36.6; O2SAT 95
[2020-10-19 07:40] LABS: Bedside Glucose 131 mg/dL (70-110)
--- NOTE | 2020-10-19 08:00 | IMM_PTH ---
PATIENT: PILLO SERRANO LOC: [facility] U#:[id number] AGE/SX: 74/F ROOM: RE10/19/[address]: Dr. Miranda Garzon MD : 1945 BED: DIS: 10/19/2020 SPEC #: [id number] RECD: 10/19/20 12:22 STATUS: CANDICE REVanna #: [id number] TED: 10/19/20 08:[address]: Miranda Garzon DEPT: IMMUNOHISTOCHEMISTRY RECD BY: Lida Penn ENTERED: 10/19/20 12:22 SP TYPE: IMMUNO OTHR DR: Dr. Sameer Townsend MD Tissues: A - Stomach, NOS Procedures: H Pylori (initial) Comments: @ Specimen number changed from [id number] to [id number] @ on 10/19/20 at 1231 by RGOOD. PHYSICIAN & INSTITUTION [place] [id number] SPECIMEN INFORMATION: Tissue Source: A ? Antrum biopsy Clinical Info: Persistent cough, acid reflux Specimen Number: [id number] CPT code: 98739 METHODOLOGY: Deparaffinized sections of prefer/formalin-fixed tissue or PAP/DQ stained slides are incubated with monoclonal/polyclonal antibodies/oligonucleotide probes. Localization is made via biotin free immunoperoxidase method. Appropriate controls are performed and reacted as expected. Results on target cell population are indicated in the following table: RESULTS: ANTIBODY / CLONE RESULT Block A H Pylori (polyclonal) negative These tests were developed and their performance characteristics determined by [facility]. They may not have been cleared or approved by the U.S. Food and Drug Administration. The FDA has determined that such clearance or approval is not necessary. INTERPRETATION: A. Antrum, biopsy: Negative for Helicobacter pylori organisms. KG:saman 10/20/2020
--- NOTE | 2020-10-19 08:00 | EGD_PTH ---
PATIENT: PILLO SERRANO LOC: [facility] U#:[id number] AGE/SX: 74/F ROOM: RE10/19/[address]: Dr. Miranda Garzon MD : 1945 BED: DIS: 10/19/2020 SPEC #: [id number] RECD: 10/19/20 09:42 STATUS: CANDICE RE #: [id number] TED: 10/19/20 08:[address]: Miranda Garzon DEPT: SURGICAL PATHOLOGY RECD BY: Marbella Grajeda ENTERED: 10/19/20 10:45 SP TYPE: EGD BIOPSY GINETTE DR: Dr. Sameer Townsend MD Tissues: A - Gastric mucous membrane B - Gastric mucous membrane Procedures: Special Stain Group II Surgery Specimen Level IV Alcian Blue/PAS (control) Comments: @ Specimen number changed from to @ on 10/19/20 at 1103 by AGNER. HEADER OPERATION: EGD ([facility] [place] PRE-OP DIAGNOSIS: Persistent cough, acid reflux TISSUE SUBMITTED: A ? Biopsy of antrum for H. pylori and path, B ? GE junction biopsy MICROSCOPIC DIAGNOSIS A. Antrum, biopsy: Mild gastritis. See microscopic description and comment. B. GE junction, biopsy: A fragment of gastroesophageal mucosa with moderate chronic inflammation. Intestinal metaplasia (goblet cell metaplasia) is not identified. See comment. SJ:saman 10/20/2020 COMMENT A. The results of immunohistochemistry for Helicobacter pylori will be reported separately ([id number]). B. Alcian blue/PAS stain with matched control is used in the evaluation of the specimen. MICROSCOPIC DESCRIPTION Slides are reviewed. A. The specimen shows fragments of gastric mucosa with chronic inflammatory cell infiltrates in the lamina propria consisting of lymphocytes and plasma cells, consistent with mild chronic gastritis. GROSS DESCRIPTION A - Received in fixative is one container labeled with the patient's name and designated biopsy of antrum. The specimen consists of multiple irregular fragments of light pierre soft tissue that in aggregate measure 0.5 x 0.4 x 0.1 cm. The specimen is totally submitted in one cassette. B - Received in fixative is one container labeled with the patient's name and designated GE junction biopsy. The specimen consists of one irregular fragment of light pierre soft tissue that measures 0.3 x 0.3 x 0.1 cm. The specimen is totally submitted in one cassette. / SJ:rg 10/19/20 TC:3 CPT: 59200 x2, 53313
[2020-10-19 08:20] VITALS: BP 118/68; BP 149/82; PULSE 68; RESP 16; TEMP 35.7; O2SAT 93
[2020-10-19 08:25] VITALS: BP 107/67; BP 149/82; PULSE 70; RESP 16; O2SAT 94
[2020-10-19 08:30] VITALS: BP 109/63; BP 149/82; PULSE 66; RESP 16; O2SAT 93
[2020-10-19 08:35] VITALS: BP 104/66; BP 149/82; PULSE 66; RESP 16; TEMP 35.8; O2SAT 95
[2020-10-19 09:14] VITALS: BP 149/82
--- NOTE | 2020-10-19 12:56 | OP.CCLET_ITS ---
10/19/2020 Sameer Townsend MD Re : Upper GI endoscopy procedure for Purnima Montes Dear Dr. Townsend This procedure was performed on Monday, October 19, 2020. My impressions and recommendations are as follows: Impressions : - Normal first portion of the duodenum and second portion of the duodenum. - Erythematous mucosa in the antrum. Biopsied. - Medium-sized hiatal hernia with distal esophagitis noted (possible sliding component). Biopsied. Recommendations : - Discharge patient to home (ambulatory). - Resume previous diet. - Continue present medications. - Await pathology results. May consider hiatal hernia surgery if reflux is true cause of chronic cough but will require esophageal manomatry studies as well as may consider pH probe study. This will have to be done at [facility], patient can be referred there if she wishes to pursue this course of treatment. - Follow up visit via telemedicine with Rody Lambert PA-C to discuss results. Call to set this up, thank you My findings are described in the full procedure note, which is enclosed. If I can be of further assistance, please feel free to contact me at Doctor phone number(s): , Work: . Sincerely, MD Miranda Albright MD 10/19/2020 8:27:05 AM This report has been signed electronically.
--- NOTE | 2020-10-19 12:56 | OP.EGD_ITS ---
Patient Name: Purnima Montes Procedure Date: 10/19/2020 8:00 AM Date of : 1945 Age: 74 Procedure: Upper GI endoscopy Indications: Suspected esophageal reflux, Chronic cough Providers: Miranda Garzon MD Medicines: See the Anesthesia note for documentation of the administered medications Patient Profile: Refer to note in patient chart for documentation of history and physical. Complications: No immediate complications. Procedure: Pre-Anesthesia Assessment: - see anesthesia note After obtaining informed consent, the endoscope was passed under direct vision. Throughout the procedure, the patient's blood pressure, pulse, and oxygen saturations were monitored continuously. The gastroscope was introduced through the mouth, and advanced to the second part of duodenum. The upper GI endoscopy was accomplished without difficulty. The patient tolerated the procedure well. Scope In: 8:07:07 AM Scope Out: 8:14:04 AM Total Procedure Duration Time 0 hours 6 minutes 57 seconds Findings: The first portion of the duodenum and second portion of the duodenum were normal. Striped mildly erythematous mucosa without bleeding was found in the gastric antrum. Biopsies were taken with a cold forceps for histology. Estimated blood loss was minimal. A medium-sized hiatal hernia was present. Biopsies were taken with a cold forceps for histology. Verification of patient identification for the specimen was done by the nurse. Estimated blood loss was minimal. Impression: - Normal first portion of the duodenum and second portion of the duodenum. - Erythematous mucosa in the antrum. Biopsied. - Medium-sized hiatal hernia with distal esophagitis noted (possible sliding component). Biopsied. Recommendation: - Discharge patient to home (ambulatory). - Resume previous diet. - Continue present medications. - Await pathology results. May consider hiatal hernia surgery if reflux is true cause of chronic cough but will require esophageal manomatry studies as well as may consider pH probe study. This will have to be done at [facility], patient can be referred there if she wishes to pursue this course of treatment. - Follow up visit via telemedicine with Rody Lambert PA-C to discuss results. Call to set this up, thank you Procedure Code(s): --- Professional --- 49340, Esophagogastroduodenoscopy, flexible, transoral; with biopsy, single or multiple Diagnosis Code(s): --- Professional --- K31.89, Other diseases of stomach and duodenum K44.9, Diaphragmatic hernia without obstruction or gangrene R05, Cough CPT copyright 2017 [employer]. All rights reserved. The codes documented in this report are preliminary and upon cardiology consultants review may be revised to meet current compliance requirements. MD Miranda Albright MD 10/19/2020 8:27:05 AM This report has been signed electronically. Number of Addenda: 0 Note Initiated On: 10/19/2020 8:00 AM
== END 2020-10-19 09:15 ==
LOC: EN 07:00 → AC 07:02
PROVIDERS: PCP Family Medicine; Referring Provider Family Medicine; Visit Provider Surgery
PROC: 0DJ08ZZ Inspection of Upper Intestinal Tract, Via Natural or Artificial Opening Endoscopic (ICD-10-PCS; CPT 43235; principal; 2020-10-19 07:55)
DX: K29.70 Gastritis, unspecified, without bleeding (principal); K31.89 Other diseases of stomach and duodenum; K44.9 Diaphragmatic hernia without obstruction or gangrene; K21.00 Gastro-esophageal reflux disease with esophagitis, without bleeding; E11.9 Type 2 diabetes mellitus without complications; I10 Essential (primary) hypertension; E78.00 Pure hypercholesterolemia, unspecified; G47.33 Obstructive sleep apnea (adult) (pediatric); M19.90 Unspecified osteoarthritis, unspecified site; M79.7 Fibromyalgia; F32.9 Major depressive disorder, single episode, unspecified; Z79.84 Long term (current) use of oral hypoglycemic drugs; Z79.899 Other long term (current) drug therapy; Z85.038 Personal history of other malignant neoplasm of large intestine; Z86.711 Personal history of pulmonary embolism; Z90.49 Acquired absence of other specified parts of digestive tract
CPT/HCPCS: 43239; 82962; 88305; 88313; 88342; J7050; J7120; J2405

== ENCOUNTER 2021-02-23 21:20 | Emergency (ER) | payer MEDICARE, OTHER, SELFPAY ==
[2021-02-23 21:21] VITALS: BP 181/91; PULSE 65; RESP 18; TEMP 36.4; O2SAT 98; BMI 26.4
[2021-02-23 21:33] LABS: Bacteria 0 SEEN /hpf (None Seen); Mucous, Urine 0 SEEN /hpf (<or=2+); White Blood Cells 0 SEEN /hpf (0-5)
--- NOTE | 2021-02-23 21:40 | EDS_ITS ---
HPI HPI - GI History of Present Illness Chief Complaint: Flank Pain Informant: patient Abdominal Pain/Flank Pain Onset: Hours (1) Context: Sudden Onset Timing: Continuous Quality: Aching Location: Left Flank Current Severity: Severe Worsened by: Nothing Relieved by: Nothing Nausea/Vomiting/Emesis GI Symptom: Positive for Nausea and Vomiting Quality: Positive for Nonbilious; Negative for Blood streaks and Coffee ground Severity: Moderate Diarrhea/Melena/Hematochezia GI Symptom: Negative for Diarrhea, Melena and Hematochezia Associated Symptoms Associated Symptoms: Negative for Dysuria, Frequency and Hematuria Narrative Narrative: Sudden onset pain throughout her left flank started about an hour or so ago. Associated with vomiting. Goes into her back. Never had this before. No recent illnesses or hospitalization. No history of kidney stones that she knows of. No urinary symptoms recently. states several days ago she had an episode of dry heaves that came out of nowhere and went away but she did not have any of this pain with it. [facility] Medical History Chronic cough Diabetes Difficulty chewing Difficulty swallowing Gastric reflux High cholesterol History of deviated nasal septum (~2001) History of hiatal hernia Hypertension Injury of head and neck Non-smoker Normal stress echocardiogram (~11/07/19) Sleep apnea Wears glasses Wears hearing aid Home Medications simvastatin 40 mg PO QHS 02/22/14 [History Last Taken 02/28/14 22:00 40] famotidine 40 mg PO DAILY 11/06/19 [History Last Taken Unknown] metformin 250 mg PO BID 11/06/19 [History Last Taken 10/19/20] lisinopril 2.5 mg PO DAILY 05/27/20 [History Last Taken 10/19/20] omeprazole 40 mg PO BID 05/27/20 [History Last Taken 10/19/20] calcium carbonate-vitamin D3 [Calcium 600 + D(3)] 1 cap PO DAILY 10/17/20 [History Last Taken Unknown] cyanocobalamin (vitamin B-12) [Vitamin B-12] 50 mcg PO DAILY 10/17/20 [History Last Taken Unknown] ondansetron 8 mg PO Q8H PRN PRN #20 tab 02/24/21 [Rx Last Taken Unknown] oxycodone-acetaminophen 1 tab PO Q6H PRN PRN 5 Days #20 tablet 02/24/21 [Rx Last Taken Unknown] Allergy/AdvReac Type Severity Reaction Status Date / Time adhesive Allergy Other Verified 02/23/21 21:22 cefaclor [From Ceclor] Allergy Other Verified 02/23/21 21:22 GREEN DYE Allergy Other Uncoded 02/23/21 21:22 Surgical History Hx of bladder repair surgery (~1981) Hx of foot surgery (~1997) Hx of hernia repair (~03/01/14) Hx of right hemicolectomy (~2012) Social History Smoking Status: Never smoker ROS ROS ED Constitutional Constitutional ED: Denies chills or fever(s) Eyes Eyes: Denies change in vision or diplopia ENT ENT ED: Denies rhinorrhea or sore throat Cardiovascular Cardiovascular: Denies chest pain or palpitations Respiratory/Chest Respiratory/Chest: Denies cough or dyspnea Gastrointestinal Gastrointestinal: Reports as per HPI, abdominal pain, nausea and vomiting; Denies diarrhea Genitourinary Genitourinary ED: Reports flank pain; Denies dysuria or hematuria Musculoskeletal Musculoskeletal: Reports back pain; Denies neck pain Integumentary Denies abscess or rash Neurologic Neurologic: Denies headache(s), paresthesias or weakness Psychiatric Psychiatric: Denies anxiety or suicidal thoughts EXAM Physical Exam Const Vital Signs: 02/23/21 21:21 02/23/21 22:12 02/23/21 23:00 Temperature 97.6 F L Temperature Source Temporal Pulse Rate 65 82 Respiratory Rate 18 20 H Respiratory Effort Normal Non-Labored Respiratory Pattern Normal Blood Pressure 181/91 H 117/62 Blood Pressure Mean 121 80 Pulse Ox 98 97 Oxygen Delivery Method Room Air Room Air Positive well nourished and well developed General Appearance ED: well developed and NAD HEENT Reports moist mucous membranes normocephalic and atraumatic Eyes PERRL and EOMs intact bilaterally Neck full ROM and supple Resp normal respiratory effort and clear to auscultation bilaterally Cardio regular rate, regular rhythm and no murmurs GI non-tender and non-distended Auscultation: normoactive bowel sounds Palpation: soft Back/Spine General Back: CVA tenderness left and other FROM Extremity normal to inspection General Extremety ED: Negative for edema, pulses abnormal or tenderness General Extremity: Negative for edema or pulses abnormal Neuro oriented x3, CN's II-XII intact bilaterally and no sensory deficits noted Sensorium / Orientation: awake and alert Motor Exam: strength 5/5 throughout Skin no rashes or lesions noted and no wounds MDM MDM MDM Narrative Medical decision making narrative: 4 mm stone seen left proximal ureter explaining the patient's symptoms. Discussed the incidental findings of the uterine mass with her, she has an appointment with PCP coming up and they can discuss management then. She has had no bleeding. After morphine 4 mg followed by another 2 mg, her pain is under control and so is her nausea after Zofran. Vital signs are improved. Urinalysis shows no signs of infection, shows microscopic hematuria, and her renal function is reasonable for her age. At this time outpatient expectant management is reasonable and indicated. We discussed reasons to return, prescribed medications for symptom control and given urinary strainers and advised to follow-up with urology if she does not pass a stone within a week. Lab Data Attestation: I reviewed the patient's lab results. Labs: Laboratory Results - last 24 hr 02/23/21 02/23/21 02/23/21 21:25 21:50 21:50 WBC 4.5 RBC 4.95 Hgb 14.6 Hct 44.5 MCV 89.9 MCH 29.5 MCHC 32.8 RDW Std Deviation 41.1 RDW Coeff of Claudia 12.5 Plt Count 190 MPV 9.7 Immature Gran % (Auto) 0.200 Neut % (Auto) 52.4 Lymph % (Auto) 37.1 [place] % (Auto) 7.4 Eos % (Auto) 1.6 Baso % (Auto) 1.3 H Absolute Neuts (auto) 2.4 Absolute Lymphs (auto) 1.66 Nucleated RBC % 0 Sodium 140 Potassium 4.0 Chloride 105 Carbon Dioxide 28.0 Anion Gap 7 BUN 19 H Creatinine 1.12 H Estim Creat Clear Calc 32.25 Est GFR (MDRD) Af Amer 61 Est GFR (MDRD) Non-Af 50 L BUN/Creatinine Ratio 17.0 Glucose 191 H Calcium 9.2 Urine Color Yellow Urine Clarity Clear Urine pH 5.0 Ur Specific [place] 1.025 Urine Protein Negative Urine Glucose (UA) Normal Urine Ketones Negative Urine Occult Blood 250 H Urine Nitrite Negative Urine Bilirubin Negative Urine Urobilinogen Normal Ur Leukocyte Esterase Negative Urine RBC 5-10 SEEN Urine WBC 0 SEEN Ur Squamous Epith Cells 0-5 SEEN Urine Bacteria 0 SEEN Urine Mucus 0 SEEN Radiography Diagnostic Testing: Clinical Impression(s) from Imaging Studies Abdomen/Pelvis CT 02/23/21 22:18 IMPRESSION: Left proximal ureter obstructing calculus with hydronephrosis and perinephric fat stranding. 12.8 cm uterine mass may represent fibroid versus less likely malignancy. Right liver hypoattenuating lesions are probably hemangiomas. L1 superior endplate fracture of uncertain acuity. Electronically Signed: Kain Arguelles MD at 22:53 EDT Tel , Service support , ADDENDUM: 02/23/217 IMPRESSION: Left proximal ureter obstructing calculus with hydronephrosis and perinephric fat stranding. 12.8 cm uterine mass may represent fibroid versus less likely malignancy. Right liver hypoattenuating lesions are probably hemangiomas. L1 superior endplate fracture of uncertain acuity. N.B. : TARI Zhao, confirmed on 02/23/2021 23:10:26 (ET) that the healthcare facility has received the radiology report. Electronically Signed: Kain Arguelles MD at 22:53 EDT Tel , Service support , Discharge Plan Triage Chief Complaint: Flank Pain ED Provider: Dionicio Tovar Dx/Rx/DC Orders Clinical Impression: Renal colic on left side, Ureterolithiasis, Mass of uterus Instructions: ED Kidney Stone w/ Colic Prescriptions: New oxycodone-acetaminophen [oxycodone-acetaminophen] 1 TABLET tablet 1 tab PO Q6H PRN PRN (Reason: pain) 5 Days Qty: 20 RF: 0 ondansetron [ondansetron] 4 MG tablet 8 mg PO Q8H PRN PRN (Reason: Nausea) Qty: 20 RF: 0 No Action simvastatin 40 MG tablet 40 mg PO QHS RF: 0 famotidine 40 MG tablet 40 mg PO DAILY RF: 0 metformin 500 MG tablet extended release 24 hr 250 mg PO BID RF: 0 lisinopril 2.5 MG tablet 2.5 mg PO DAILY RF: 0 omeprazole 20 MG capsule 40 mg PO BID RF: 0 Vitamin B-12 50 mcg Tablet 50 mcg PO DAILY RF: 0 Calcium 600 + D(3) 600 mg calcium- 200 unit Capsule 1 cap PO DAILY RF: 0 Primary Care Provider: Sameer Townsend Referrals: Josiane Yin MD [STAFF PHYSICIAN] - 1 Week if not improving Sameer Townsend MD [Primary Care Provider] - Keep Raciel appointment Activity Restrictions/Additional Instructions: May also use stool softener such as Colace or MiraLAX 1 capful daily along with the narcotic pain medication which has a tendency to cause constipation. Disposition Disposition: Home, Self Care
[2021-02-23 21:43] LABS: Color, Urine Yellow (Yellow); Glucose, Dipstick Normal (Normal); Ketone-Dipstick Negative (Negative); Leukocyte Esterase-Dipstick Negative /ul (Negative); Nitrite-Dipstick Negative (Negative); Occult Blood-Urine 250 /ul (Negative); Protein-Dipstick Negative (Negative); Specific Gravity, Urine 1.025 (1.002-1.030); Urine Bilirubin Dipstick Negative (Negative); Urine Clarity Clear (Clear); Urine Urobilinogen Normal (Normal)
[2021-02-23 21:54] LABS: Red Blood Cells-Urine 5-10 SEEN /hpf (0-5); Squamous Epithelial Cells - UA 0-5 SEEN /hpf (5-10)
[2021-02-23] MEDS: Morphine 4 MG/ML Syringe IV (22:00)
[2021-02-23] MEDS: Ondansetron 4 MG/2 ML Vial IV (22:00)
[2021-02-23 22:04] LABS: Absolute Lymphocyte Count 1.66 X10^3/uL (0.83-4.51); Absolute Neutrophil Count 2.4 X10^3/uL (2.0-7.7); Basophil# 0.06 X10^3/uL; Basophil% 1.3 % (0-1); Eosinophil# 0.07 X10^3/uL; Eosinophils% 1.6 % (0-5); Hematocrit 44.5 % (37-47); Hemoglobin 14.6 g/dL (12.0-15.0); Lymphocyte # 1.66 X10^3/ul (0.83-4.51); Lymphocyte % 37.1 % (19-41); Mean Corp Hgb Conc 32.8 g/dL (32-36); Mean Corpuscular Hgb 29.5 pg (27.0-32.0); Mean Corpuscular Volume 89.9 fL (81-99); Mean Platelet Vol. 9.7 fl (6.2-12.0); Monocyte# 0.33 X10^3/uL; Monocyte% 7.4 % (0-10); NRBC Flagged by Analyzer 0 % (0-5); Neutrophil # 2.35 X10^3/uL (2.7-7.7); Neutrophil % 52.4 % (47-70); Platelet Count 190 K/mm3 (150-450); RBC Distribution Width CV 12.5 % (11.6-14.6); RBC Distribution Width SD 41.1 fl (35.1-43.9); Red Blood Count 4.95 M/mm3 (4.2-5.4); White Blood Count 4.5 K/mm3 (4.4-11.0)
--- NOTE | 2021-02-23 22:18 | CT_ITS ---
STUDY: CT ABDOMEN AND PELVIS WITHOUT CONTRAST REASON FOR EXAM: Female, 75 years old. Left flank pain; history of bladder repair, hernia, and hemicolectomy RADIATION DOSAGE (If Supplied By Facility): CTDIvol = ( 10.16 ) mGy, DLP = ( 516.85 ) mGycm TECHNIQUE: Transaxial images were obtained from the dome of the diaphragm to the symphysis pubis without oral contrast, and without intravenous contrast. Sagittal and coronal images were reconstructed. Individualized dose optimization techniques were used for this CT. COMPARISON: None. FINDINGS: Left lung base subsegmental atelectasis. The visualized portions of the heart are within normal limits. 1.3 cm hypoattenuating right lower liver and lesion. 1.1 cm hypoattenuating right upper liver lesion. Normal gallbladder and extrahepatic biliary system. Normal spleen. Normal pancreas. Normal bilateral adrenal glands. Normal right kidney. 4 mm proximal left ureter calculus with mild hydronephrosis and perinephric fat stranding. Left renal cysts. Normal visualized stomach. Normal small intestine. Right hemicolectomy. Otherwise normal appearing colon. Normal abdominal aorta. Normal inferior vena cava. Normal retroperitoneum. Normal urinary bladder. 12.8 x 12.4 x 10.4 cm solid mass, probably uterine. Normal abdominal wall. L1 superior endplate compression fracture. CT/Abdomen/Pelvis without Cont IMPRESSION: Left proximal ureter obstructing calculus with hydronephrosis and perinephric fat stranding. 12.8 cm uterine mass may represent fibroid versus less likely malignancy. Right liver hypoattenuating lesions are probably hemangiomas. L1 superior endplate fracture of uncertain acuity. Electronically Signed: Kain Arguelles MD at 22:53 EDT Tel , Service support ,
[2021-02-23 22:19] LABS: Anion Gap 7 (5-15); BUN 19 mg/dL (7-18); Calcium,Total 9.2 mg/dL (8.5-10.1); Chloride 105 mmol/L (98-107); Creatinine, Serum 1.12 mg/dL (0.55-1.02); EST Glomerular Filtration Rate 50 mL/min (>60); Est Glom Filt Rate - Afr Amer 61 mL/min (>60); Estimated Creatinine Clearance 32.25 ml/min; Glucose 191 mg/dL (74-106); Sodium Level 140 mmol/L (136-145)
[2021-02-23] MEDS: Morphine 4 MG/ML Syringe 2 MG IV (22:58)
[2021-02-23 23:00] VITALS: BP 117/62; PULSE 82; RESP 20; O2SAT 97
== END 2021-02-24 00:35 | disposition home or self-care (01) ==
PROVIDERS: Emergency Provider Emergency Medicine; PCP Family Medicine
DX: N13.2 Hydronephrosis with renal and ureteral calculous obstruction (principal); G47.30 Sleep apnea, unspecified
CPT/HCPCS: 74176; 80048; 81001; 85025; 96374; 96375; 96376; 99283; A4216; J2405

== ENCOUNTER 2021-03-03 14:41 | Emergency (ER) | payer MEDICARE, OTHER, SELFPAY ==
[2021-03-03 14:41] VITALS: BP 162/96; PULSE 87; RESP 16; TEMP 36.9; O2SAT 95; BMI 25.4
[2021-03-03 15:51] LABS: Absolute Lymphocyte Count 1.21 X10^3/uL (0.83-4.51); Absolute Neutrophil Count 4.3 X10^3/uL (2.0-7.7); Basophil# 0.04 X10^3/uL; Basophil% 0.7 % (0-1); Eosinophil# 0.06 X10^3/uL; Hematocrit 45.6 % (37-47); Hemoglobin 15.2 g/dL (12.0-15.0); Lymphocyte # 1.21 X10^3/ul (0.83-4.51); Lymphocyte % 20.2 % (19-41); Mean Corp Hgb Conc 33.3 g/dL (32-36); Mean Corpuscular Hgb 29.5 pg (27.0-32.0); Mean Corpuscular Volume 88.5 fL (81-99); Mean Platelet Vol. 9.8 fl (6.2-12.0); Monocyte# 0.37 X10^3/uL; Monocyte% 6.2 % (0-10); NRBC Flagged by Analyzer 0 % (0-5); Neutrophil # 4.29 X10^3/uL (2.7-7.7); Neutrophil % 71.6 % (47-70); Platelet Count 240 K/mm3 (150-450); RBC Distribution Width CV 12.7 % (11.6-14.6); RBC Distribution Width SD 41.3 fl (35.1-43.9); Red Blood Count 5.15 M/mm3 (4.2-5.4)
[2021-03-03 15:58] LABS: Bacteria 0 SEEN /hpf (None Seen); Mucous, Urine 0 SEEN /hpf (<or=2+); Squamous Epithelial Cells - UA 0 SEEN /hpf (5-10)
--- NOTE | 2021-03-03 15:58 | CT_ITS ---
EXAM: CT ABDOMEN AND PELVIS WITHOUT INTRAVENOUS CONTRAST CLINICAL INDICATION: left flank pain TECHNIQUE: Helically acquired images were obtained of the abdomen and pelvis without intravenous contrast. This CT exam was performed using one or more of the following dose reduction techniques: automated exposure control, adjustment of the mA and/or kV according to patient size, and/or use of iterative reconstruction technique. This report was created using [employer] report generation technology. COMPARISON: 02/23/2021. FINDINGS: LOWER THORAX: Unremarkable. Lung bases are clear. No cardiomegaly. No significant pericardial effusion. ABDOMEN: LIVER: Hepatic cyst versus hemangioma. No required imaging follow-up needed given high likelihood of benign nature. GALLBLADDER AND BILE DUCTS: Unremarkable. No calcified gallstones. No gallbladder distention or wall edema. No intra- or extrahepatic biliary ductal dilation. PANCREAS: Unremarkable. No focal cystic mass. SPLEEN: Unremarkable. Normal size without focal cystic or solid mass. ADRENALS: Unremarkable. No nodules. KIDNEYS AND URETERS: 2 calculi of the left UVJ (previously the proximal ureter) measuring up to 4 mm with mild left hydronephrosis and hydroureter. Simple left renal cyst, stable. Normal renal size and position. STOMACH AND BOWEL: Surgical anastomosis of the right colon. No stomach or bowel distention. No focal inflammatory change. PELVIS: APPENDIX: Appendix is not seen. BLADDER: Unremarkable. REPRODUCTIVE: 12-13 cm mass arising from the uterine fundus, stable. ABDOMEN and PELVIS: INTRAPERITONEAL SPACE: Unremarkable. No ascites or other fluid collection. No free air. BONES/JOINTS: Stable mild L1 compression fracture.. No suspicious lytic or blastic abnormality. SOFT TISSUES: Unremarkable. No discrete abdominal or pelvic wall hernia. VASCULATURE: Atherosclerosis of the abdominal aorta and iliac arteries. Abdominal aorta is non-dilated. LYMPH NODES: Unremarkable. No enlarged lymph nodes. CT/Abdomen/Pelvis without Cont IMPRESSION: 1. 2 calculi of the left UVJ (previously the proximal ureter) measuring up to 4 mm with mild left hydronephrosis and hydroureter. 2. 12-13 cm mass arising from the uterine fundus, stable. Probable fibroid, but size somewhat atypical for patient age. Recommend nonemergent pelvic ultrasound or MRI. Electronically Signed: Robert Ann MD ([place]oks) at 16:46 EDT , Service support ,
[2021-03-03 16:00] LABS: Color, Urine Yellow (Yellow); Glucose, Dipstick Normal (Normal); Ketone-Dipstick Negative (Negative); Leukocyte Esterase-Dipstick 25 /ul (Negative); Nitrite-Dipstick Negative (Negative); Occult Blood-Urine 250 /ul (Negative); Protein-Dipstick 30 mg/dl (Negative); Specific Gravity, Urine 1.025 (1.002-1.030); Urine Bilirubin Dipstick Negative (Negative); Urine Clarity Sl. Cloudy (Clear); Urine Urobilinogen Normal (Normal)
[2021-03-03 16:03] LABS: Anion Gap 7 (5-15); BUN 16 mg/dL (7-18); BUN/Creat Ratio 15.4 RATIO (10-20); Calcium,Total 9.7 mg/dL (8.5-10.1); Chloride 107 mmol/L (98-107); Creatinine, Serum 1.04 mg/dL (0.55-1.02); EST Glomerular Filtration Rate 55 mL/min (>60); Est Glom Filt Rate - Afr Amer 66 mL/min (>60); Estimated Creatinine Clearance 34.73 ml/min; Glucose 117 mg/dL (74-106); Potassium 3.8 mmol/L (3.5-5.1); Sodium Level 141 mmol/L (136-145)
[2021-03-03 16:20] LABS: Red Blood Cells-Urine 25-50 SEEN /hpf (0-5); White Blood Cells 0-5 SEEN /hpf (0-5)
[2021-03-03] MEDS: Morphine 4 MG/ML Syringe IV (16:20)
[2021-03-03] MEDS: 0.9% Normal Saline 1,000 ML 999 ML IV (16:20)
[2021-03-03] MEDS: Ondansetron 4 MG/2 ML Vial IV (16:21)
[2021-03-03] MEDS: fentaNYL 100 MCG/2 ML Ampul 50 MCG IV (17:32)
[2021-03-03 17:33] VITALS: BP 148/70; PULSE 93; RESP 16; O2SAT 97
[2021-03-03] MEDS: Ketorolac 15 MG/ML Vial IV (17:33)
--- NOTE | 2021-03-03 17:47 | EDS_ITS ---
HPI History of Present Illness Chief Complaint: Flank Pain Narrative Narrative: Patient is a 75-year-old female who was seen approximately 1 week ago secondary to flank/abdominal pain. At that time she was diagnosed with a left- sided kidney stone as well as uterine mass. Patient states that the oxycodone and Zofran she is prescribed have not helped at all and she has had increasing pain to the left flank. She states she is also been straining her urine and has not noticed that she has passed the stone and secondary to this comes in for evaluation. [facility] Medical History Chronic cough Diabetes Difficulty chewing Difficulty swallowing Gastric reflux High cholesterol History of deviated nasal septum (~2001) History of hiatal hernia Hypertension Injury of head and neck Non-smoker Normal stress echocardiogram (~11/07/19) Sleep apnea Wears glasses Wears hearing aid Home Medications simvastatin 40 mg PO QHS 02/22/14 [History Last Taken 02/28/14 22:00 40] famotidine 40 mg PO DAILY 11/06/19 [History Last Taken Unknown] metformin 250 mg PO BID 11/06/19 [History Last Taken 10/19/20] lisinopril 2.5 mg PO DAILY 05/27/20 [History Last Taken 10/19/20] omeprazole 40 mg PO BID 05/27/20 [History Last Taken 10/19/20] calcium carbonate-vitamin D3 [Calcium 600 + D(3)] 1 cap PO DAILY 10/17/20 [History Last Taken Unknown] cyanocobalamin (vitamin B-12) [Vitamin B-12] 50 mcg PO DAILY 10/17/20 [History Last Taken Unknown] ondansetron 8 mg PO Q8H PRN PRN #20 tab 02/24/21 [Rx Last Taken Unknown] oxycodone-acetaminophen 1 tab PO Q6H PRN PRN 5 Days #20 tablet 02/24/21 [Rx Last Taken Unknown] ketorolac 10 mg PO TID PRN 5 Days #15 tab 03/03/21 [Rx Last Taken Unknown] ketorolac 10 mg PO TID PRN 5 Days #15 tab 03/03/21 [Rx Last Taken Unknown] promethazine 12.5 mg PO TID PRN #21 tab 03/03/21 [Rx Last Taken Unknown] promethazine 12.5 mg PO TID PRN #21 tab 03/03/21 [Rx Last Taken Unknown] tramadol [Ultram] 50 mg PO TID PRN 5 Days #15 tab 03/03/21 [Rx Last Taken Unknown] tramadol [Ultram] 50 mg PO TID PRN 5 Days #15 tab 03/03/21 [Rx Last Taken Unknown] Allergy/AdvReac Type Severity Reaction Status Date / Time adhesive Allergy Other Verified 03/03/21 14:43 cefaclor [From Ceclor] Allergy Other Verified 03/03/21 14:43 GREEN DYE Allergy Other Uncoded 03/03/21 14:43 Surgical History Hx of bladder repair surgery (~1981) Hx of foot surgery (~1997) Hx of hernia repair (~03/01/14) Hx of right hemicolectomy (~2012) Social History Smoking Status: Never smoker ROS ROS ED Constitutional Constitutional ED: Denies chills or fever(s) Cardiovascular Cardiovascular: Denies chest pain Respiratory/Chest Respiratory/Chest: Denies cough or dyspnea Gastrointestinal Gastrointestinal: Reports abdominal pain, nausea and vomiting; Denies diarrhea Genitourinary Genitourinary ED: Denies dysuria or hematuria Musculoskeletal Musculoskeletal: Reports back pain; Denies myalgias Integumentary Denies rash Neurologic Neurologic: Denies headache(s) Hematologic/Lymphatic Hematologic/Lymphatic: Denies easy bleeding or easy bruising EXAM Physical Exam Const Vital Signs: 03/03/21 14:41 03/03/21 15:43 03/03/21 17:33 Temperature 98.4 F Temperature Source Temporal Pulse Rate 87 93 Respiratory Rate 16 16 Respiratory Effort Normal Respiratory Pattern Normal Blood Pressure 162/96 H 148/70 H Blood Pressure Mean 118 96 Pulse Ox 95 97 Oxygen Delivery Method Room Air 03/03/21 18:30 Temperature Temperature Source Pulse Rate 80 Respiratory Rate 16 Respiratory Effort Respiratory Pattern Blood Pressure 140/78 H Blood Pressure Mean Pulse Ox 97 Oxygen Delivery Method Positive well nourished and well developed General Appearance ED: well developed HEENT Reports moist mucous membranes Eyes PERRL and EOMs intact bilaterally Neck supple Resp normal respiratory effort and clear to auscultation bilaterally Cardio regular rate and regular rhythm Rate: other Other Details: Radial pulses are plus 2 out of 4 bilaterally are equal and symmetric GI non-distended GI Narrative: There tenderness palpation along the left side of the abdomen diffusely but no voluntary guarding or rigidity. Patient also has organomegaly noted in the suprapubic region consistent with her recent diagnosis of uterine mass. Palpation: soft Back/Spine Back/Spine Narrative: Positive left CVA pain Extremity normal to inspection Neuro oriented x3 and CN's II-XII intact bilaterally Sensorium / Orientation: alert Motor Exam: strength 5/5 throughout Psych mental status grossly normal Skin no rashes or lesions noted Skin Narrative: No overlying soft tissue changes to suggest trauma or infection MDM MDM MDM Narrative Medical decision making narrative: Patient presented with persistent/worsening left-sided flank pain and there is concern this is due to a retained stone. Secondary to this elected perform repeat laboratory studies and a CT scan. Labs revealed no signs of urosepsis or acute kidney injury. CAT scan showed that patient has 2 stones which have migrated to the distal UVJ but are now obst ructed leading to mild hydronephrosis. Patient does not have acute kidney injury uroseptic changes and does not need placed in the hospital for that. We discussed admission for intractable pain and possible stent placement however patient states that after the medication she is feeling better and would prefer to do this on an outpatient basis and therefore be discharged at this time Lab Data Attestation: I reviewed the patient's lab results. Labs: Laboratory Results - last 24 hr 03/03/21 03/03/21 03/03/21 15:05 15:05 15:52 WBC 6.0 RBC 5.15 Hgb 15.2 H Hct 45.6 MCV 88.5 MCH 29.5 MCHC 33.3 RDW Std Deviation 41.3 RDW Coeff of Claudia 12.7 Plt Count 240 MPV 9.8 Immature Gran % (Auto) 0.300 Neut % (Auto) 71.6 H Lymph % (Auto) 20.2 [place] % (Auto) 6.2 Eos % (Auto) 1.0 Baso % (Auto) 0.7 Absolute Neuts (auto) 4.3 Absolute Lymphs (auto) 1.21 Nucleated RBC % 0 Sodium 141 Potassium 3.8 Chloride 107 Carbon Dioxide 27.0 Anion Gap 7 BUN 16 Creatinine 1.04 H Estim Creat Clear Calc 34.73 Est GFR (MDRD) Af Amer 66 Est GFR (MDRD) Non-Af 55 L BUN/Creatinine Ratio 15.4 Glucose 117 H Calcium 9.7 Urine Color Yellow Urine Clarity Sl. Cloudy Urine pH 5.0 Ur Specific [place] 1.025 Urine Protein 30 H Urine Glucose (UA) Normal Urine Ketones Negative Urine Occult Blood 250 H Urine Nitrite Negative Urine Bilirubin Negative Urine Urobilinogen Normal Ur Leukocyte Esterase 25 H Urine RBC 25-50 SEEN Urine WBC 0-5 SEEN Ur Squamous Epith Cells 0 SEEN Urine Bacteria 0 SEEN Urine Mucus 0 SEEN Radiography Diagnostic Testing: Clinical Impression(s) from Imaging Studies Abdomen/Pelvis CT 03/03/21 15:58 IMPRESSION: 1. 2 calculi of the left UVJ (previously the proximal ureter) measuring up to 4 mm with mild left hydronephrosis and hydroureter. 2. 12-13 cm mass arising from the uterine fundus, stable. Probable fibroid, but size somewhat atypical for patient age. Recommend nonemergent pelvic ultrasound or MRI. Electronically Signed: Robert Ann MD (Brooks) at 16:46 EDT , Service support , Discharge Plan Triage Chief Complaint: Flank Pain ED Provider: Paolo Perkins Dx/Rx/DC Orders Clinical Impression: Kidney stone on left side, Renal colic on left side Instructions: ED Kidney Stone w/ Colic Prescriptions: New tramadol [Ultram] 50 mg tablet 50 mg PO TID PRN (Reason: pain) 5 Days Qty: 15 RF: 0 ketorolac 10 mg tablet 10 mg PO TID PRN (Reason: pain) 5 Days Qty: 15 RF: 0 promethazine 12.5 mg tablet 12.5 mg PO TID PRN (Reason: nausea and vomiting) Qty: 21 RF: 0 tramadol [Ultram] 50 mg tablet 50 mg PO TID PRN (Reason: pain) 5 Days Qty: 15 RF: 0 ketorolac 10 mg tablet 10 mg PO TID PRN (Reason: pain) 5 Days Qty: 15 RF: 0 promethazine 12.5 mg tablet 12.5 mg PO TID PRN (Reason: nausea and vomiting) Qty: 21 RF: 0 No Action simvastatin 40 MG tablet 40 mg PO QHS RF: 0 famotidine 40 MG tablet 40 mg PO DAILY RF: 0 metformin 500 MG tablet extended release 24 hr 250 mg PO BID RF: 0 lisinopril 2.5 MG tablet 2.5 mg PO DAILY RF: 0 omeprazole 20 MG capsule 40 mg PO BID RF: 0 Vitamin B-12 50 mcg Tablet 50 mcg PO DAILY RF: 0 Calcium 600 + D(3) 600 mg calcium- 200 unit Capsule 1 cap PO DAILY RF: 0 oxycodone-acetaminophen [oxycodone-acetaminophen] 1 TABLET tablet 1 tab PO Q6H PRN PRN (Reason: pain) 5 Days Qty: 20 RF: 0 ondansetron [ondansetron] 4 MG tablet 8 mg PO Q8H PRN PRN (Reason: Nausea) Qty: 20 RF: 0 Primary Care Provider: Sameer Townsend Referrals: Sameer Townsend MD [Primary Care Provider] - Abdiel Lacy MD [STAFF PHYSICIAN] - 3-5 Days (For possible stent placement) Disposition Disposition: Home, Self Care Discharge Date/Time: 03/03/21 18:50
[2021-03-03 18:30] VITALS: BP 140/78; PULSE 80; RESP 16; O2SAT 97
== END 2021-03-03 18:50 | disposition home or self-care (01) ==
PROVIDERS: Emergency Medicine; Emergency Provider Emergency Medicine; PCP Family Medicine
DX: N13.2 Hydronephrosis with renal and ureteral calculous obstruction (principal); G47.30 Sleep apnea, unspecified; E78.00 Pure hypercholesterolemia, unspecified; E11.9 Type 2 diabetes mellitus without complications; I10 Essential (primary) hypertension; K21.9 Gastro-esophageal reflux disease without esophagitis; Z79.84 Long term (current) use of oral hypoglycemic drugs; Z87.442 Personal history of urinary calculi; Z79.899 Other long term (current) drug therapy
CPT/HCPCS: 74176; 80048; 81001; 85025; 96374; 96375; 99283; J7030; A4216; J2405

== ENCOUNTER 2021-05-10 13:00 | Outpatient (CLI) | payer MEDICARE, OTHER, SELFPAY ==
--- NOTE | 2021-05-10 | FLU_PTH ---
PATIENT: PILLO SERRANO LOC: [facility] U#:[id number] AGE/SX: 75/F ROOM: RE05/10/[address]: Dr. Miranda Garzon MD : [id number] BED: DIS: 05/10/2021 SPEC #: [id number] RECD: 05/11/21 13:27 STATUS: SOUT REQ #: [id number] TED: 05/10/21 00:[address]: Miranda Garzon DEPT: CYTOLOGY RECD BY: Marbella Grajeda ENTERED: 05/11/21 13:27 SP TYPE: Fluid OTHR DR: MD Dr. Sameer Machuca MD Tissues: A - Thyroid gland, NOS B - Thyroid gland, NOS Procedures: Special Stain Group II Surgery Specimen Level IV Cytospin Fluid Cytology Other Comments: @ Ordering doctor for SSII edited from to @ by BEN at 05/11/21 1511 @ Ordering doctor for SUIV edited from to DR.LWANG Powell by BEN at 05/11/21 1511 @ Ordering doctor for CYSPIN edited from to DR.LWANG Powell by BEN at 05/11/21 1511 @ Ordering doctor for CYOTHER edited from to @ by BEN at 05/11/21 1511 @ Submitting doctor edited from to DR.LWANG Powell by BEN at 05/11/21 1511 @ Originally on account #[id number] Req #[id number] HEADER OPERATION: Fine needle aspiration left thyroid PRE-OP DIAGNOSIS: Abnormal thyroid ultrasound TISSUE SUBMITTED: A ? FNA left thyroid fluid, B ? FNA left thyroid slides x8 DIAGNOSIS CYTOLOGY A. Left thyroid nodule fluid, FNA (cytospin and cell block): Consistent with benign colloid nodule with cystic changes. Adequate for evaluation. B. Left thyroid nodule, FNA (smears): Consistent with benign colloid nodule with cystic changes. Adequate for evaluation. See comment. SJ:saman 05/12/2021 COMMENT B. Smears show drying artifacts. Correlation with clinical, radiologic findings and appropriate follow up are necessary. CYTOLOGY STUDY Slides are reviewed. CYTOLOGY GROSS A - Received is 30 ml of dark brown cloudy fluid labeled with the patient's name and and designated per the requisition as left thyroid. Submitted for cytology preparation including cell block. B - Received are eight smears labeled with the patient's name and designated per the requisition as left thyroid. Submitted for staining. / saman 05/11/2021 TC:5 CPT: 55733, 22542, 59032
== END 2021-05-10 23:59 | disposition short-term general hospital (02) ==
PROVIDERS: PCP Family Medicine; Visit Provider Surgery
DX: R93.89 Abnormal findings on diagnostic imaging of other specified body structures (principal)
CPT/HCPCS: 88108; 88161; 88305; 88313

== ENCOUNTER 2021-05-11 13:05 | Outpatient (CLI) | payer MEDICARE, OTHER, SELFPAY ==
--- NOTE | 2021-05-11 13:08 | US_ITS ---
STUDY: RENAL ULTRASOUND - COMPLETE REASON FOR EXAM: Female, 75 years old. CALCULUS OF KIDNEY TECHNIQUE: Ultrasound evaluation of the kidneys was performed with real-time and static moy-scale imaging. COMPARISON: None. FINDINGS: RIGHT KIDNEY: Normal location of the right kidney, which is normal in size. The right kidney measures 11.5 cm x 5.3 cm x 6.1 cm. There is a normal cortex of the right kidney. The renal cortex measures 1.6 cm. There is no right renal mass or cyst. There is a 3 mm x 4 mm x 4 mm nonobstructive right intrarenal calculus. There is no right hydronephrosis. DISTAL RIGHT URETER: There is non-visualization of the distal right ureter. There is no demonstrated right ureterovesical junction calculus. There is a visualized right ureteral jet. LEFT KIDNEY: Normal location of the left kidney, which is normal in size. The left kidney measures 10.7 cm x 6.8 cm x 6.4 cm. There is a normal cortex of the left kidney. The renal cortex measures 1.4 cm. 2 renal cysts are seen. The largest measures 4.9 cm x 4.1 cm x 4.4 cm. There are no left renal calculi. There is no left hydronephrosis. DISTAL LEFT URETER: There is non-visualization of the distal left ureter. There is no demonstrated left ureterovesical junction calculus. There is a visualized left ureteral jet. BLADDER: The distended urinary bladder has a volume of 55 ml. There is a normal wall thickness of the distended urinary bladder. There is no demonstrated mass within the urinary bladder. There are no demonstrated bladder calculi. US/Kidney and Bladder IMPRESSION: 2 left renal cysts. Nonobstructive calculus in the right kidney. Electronically Signed: Michael Billingsley MD at 14:14 EST , Service support ,
== END 2021-05-11 23:59 | disposition short-term general hospital (02) ==
LOC: US 13:07
PROVIDERS: PCP Family Medicine; Visit Provider Urology
DX: N13.2 Hydronephrosis with renal and ureteral calculous obstruction (principal)
CPT/HCPCS: 76770; 88108; 88161; 88305; 88313

== ENCOUNTER → 2022-04-18 | Outpatient (CLI) | payer MEDICARE, OTHER, SELFPAY ==
--- NOTE | 2022-04-18 09:05 | RAD_ITS ---
STUDY: X-RAY - ABDOMEN/PELVIS REASON FOR EXAM: Female, 76 years old. Flank pain TECHNIQUE: Two AP supine views of the abdomen and pelvis. COMPARISON: None. FINDINGS: Normal visualized lung bases. There is an unremarkable bowel gas pattern. There is no demonstrated free abdominal air. The visualized liver, spleen and kidneys are grossly normal in size and morphology. No calcifications overlying either renal shadow, or along the expected course of either ureter. However, one could be obscured by overlying bowel gas and stool. Lucent centered calcifications in the pelvis are likely phleboliths. Normal visualized osseous structures. RAD/Abdomen Single View IMPRESSION: No suspicious findings Electronically Signed: Jeremie Anna MD at 12:23 EST ,
== END | disposition home or self-care (01) ==
LOC: MTRAD 08:53
PROVIDERS: PCP Family Medicine; Referring Provider Urology; Visit Provider Urology
DX: N20.0 Calculus of kidney (principal)
CPT/HCPCS: 74018